=== PATIENT | female | born 1940 | race Caucasian/White ===

== ENCOUNTER 2024-08-21 12:07 | Inpatient (IN) ==
--- NOTE | 2024-08-21 13:09 | Emergency Department Note ---
HPI - Fall General Stated Complaint: fall Time Seen by Provider: 08/21/24 12:53 Source: patient and family Mode of arrival: walk-in Limitations: no limitations History of Present Illness HPI Narrative: This is a 84 year old female patient that presents to the ER with c/o falling 3 days ago in the bathroom and has been c/o left lateral rib pain, LLQ abdominal pain, bruising to left periorbital area since fall. Patient denies any LOC, neck pain, back pain, hip pain, chest pain, SOB, numbness, tingling, weakness, LOC, dizziness or N/V MD complaint: Reports fall Fall from: Reports standing Fall witnessed: Reports no Place fall occurred: Reports home Prolonged down time: Reports no Context: Reports tripped/slipped Location of injury: Reports head and face Associated symptoms (after fall): Reports denies Related Data Home Medications Medication Instructions Recorded Confirmed atorvastatin 20 mg tablet 20 mg PO DAILY 02/22/24 06/02/24 budesonide 160 mcg-glycopyr 9 2 inh inhalation BID 02/22/24 06/02/24 mcg-formot 4.8 mcg/actuation HFA inhaler ([employer]) gabapentin 100 mg capsule 100 mg PO Q12H 02/22/24 06/02/24 isosorbide mononitrate 60 mg 60 mg PO DAILY 02/22/24 06/02/24 tablet,extended release 24 hr metoprolol succinate 50 mg 50 mg PO .qhs 02/22/24 06/02/24 tablet,extended release 24 hr rivaroxaban 20 mg tablet (Xarelto) 20 mg PO DAILY 02/22/24 06/02/24 venlafaxine 150 mg 150 mg PO DAILY 02/22/24 06/02/24 capsule,extended release 24 hr hydroxyzine HCl 10 mg tablet 10 mg PO TID 06/02/24 06/02/24 methenamine hippurate 1 gram tablet 1 g PO BID 06/02/24 06/02/24 Previous Rx's Medication Instructions Recorded furosemide 20 mg tablet 20 mg PO ONCE PRN wt gain, dysnea, 02/25/24 swelling #30 tabs levalbuterol HCl 1.25 mg/3 mL 1.25 mg (3 mL) inhalation Q6H PRN 02/25/24 solution for nebulization shortness of breath or wheezing #240 mL Allergies Allergy/AdvReac Type Severity Reaction Status Date / Time codeine Allergy Mild Verified 06/01/24 17:21 Review of Systems 2 Status of ROS 10 or more systems reviewed and unremark able except as noted in history and below Constitutional Denies: fever, chills, change in weight, fatigue, malaise or night sweats Eyes Denies: change in vision or blurry vision Ears, nose, mouth, and throat Denies: throat pain, neck pain, throat swelling, difficulty swallowing or hoarseness Cardiovascular Reports: other (left lateral rib pain); Denies: chest pain, palpitations, edema, swelling of feet/ankles or lightheadedness Respiratory Denies: shortness of breath, cough, wheezing, stridor or pain on inspiration Gastrointestinal Reports: abdominal pain (LLQ); Denies: nausea, vomiting, coffee grounds in vomit, heartburn, diarrhea or constipation Genitourinary Denies: painful urination, urinary frequency, urinary urgency or urinary incontinence Musculoskeletal Denies: back pain, neck pain, extremity pain or extremity swelling Neurological Denies: headache, numbness in extremities, weakness in extremities or lack of coordination Psychiatric Denies: anxiety, mood swings, panic attacks, change in sleep pattern or hopelessness Endocrine Denies: excessive urination, excessive thirst, fatigue or cold intolerance Hematologic/Lymphatic Denies: easy bruising or easy bleeding Allergic/Immunologic Denies: hives, throat swelling, tongue swelling, facial swelling, wheezing or itchy eyes PFSH PFSH Medical History (Updated 06/09/24 @ 00:00 by ) COPD (chronic obstructive pulmonary disease) HTN (hypertension) A-fib CHF (congestive heart failure) CVA (cerebral vascular accident) Pacemaker Surgical History Hx of cholecystectomy Hx of hysterectomy Hx of appendectomy Hx of prior ablation treatment Social History (Updated 06/01/24 @ 20:24 by Monse Main APRN) Smoking status: current every day smoker Within the past year, how often did you have a drink containing alcohol: never Score interpretation: A score less than 3 is consistent with normal alcohol consumption. Non-prescribed substance use: denies use Problems where you live: no known problems Highest level of school completed/degree received: high school Feel stressed/tense/nervous/anxious/difficulty sleeping: to some extent Life stressors: other (none) Life stressor details: Current medical condition Due to disability, difficulty making decisions: No Exam Constitutional: normal general appearance and no apparent distress HENMT: normocephalic, head/scalp traumatic (old yellow bruising left periorbital area), hearing grossly normal bilaterally, external ears normal, EACs normal, nasal mucous membranes normal, external nose normal, oral mucous membranes normal and oropharynx normal Eyes: PERRL, EOMs intact bilaterally, conjunctivae normal and no scleral icterus Neck/C-Spine: visual inspection normal, trachea midline, cervical spine nontender, cervical full ROM noted, supple, no meningeal signs and thyroid normal Lymph: no lymphadenopathy noted Chest: inspection of chest normal and palpation of chest abnormal left lateral rib tenderness with palpation Respiratory: breath sounds equal bilaterally, normal respiratory effort, clear to auscultation bilaterally, no wheezes, no rales, no use of accessory muscles and chest percussion normal Cardiovascular: normal heart rate noted, regular rhythm noted, no rub, no murmur, no JVD, peripheral pulses 2+ throughout and no additional abnormal heart sounds Gastrointestinal: abdomen normal to inspection, abdomen soft to palpation, tender to palpation (tenderness) (LLQ), nontender to percussion, nondistended, normoactive bowel sounds, no hepatosplenomegaly, no masses, no pulsatile mass, no ascites and no hernia Genitourinary: no CVA tenderness Back/Pelvis: spine normal to inspection, no thoracic spine tenderness, no lumbar spine tenderness, thoracic spine ROM normal, lumbar spine ROM normal, no paraspinal muscle tenderness noted and straight leg raise negative bilaterally Extremities: abnormal to inspection (skin tear Right upper arm), normal to palpation, no tenderness, full ROM, no joint enlargement and no deformity Neurology: 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 MDM - Fall Differential Diagnosis Differential diagnosis: Likely other (rib contusions) Medical Records Attestation: I reviewed the patient's medical records. Lab Data Attestation: I reviewed the patient's lab results. Labs: Lab Results 08/21/24 Range/Units 13:23 WBC 11.8 H (4.3-9.3) K/uL RBC 4.5 (4.00-5.50) M/uL Hgb 14.2 (12.5-15.8) gm/dL Hct 43.6 (35.9-46.7) % MCV 96.7 H (81.0-93.7) fl MCH 31.4 (27.6-32.2) pg MCHC 32.5 L (33.1-35.3) g/dl RDW 17.1 H (11.4-14.2) % Plt Count 218 (152-353) K/uL MPV 8.3 (6.9-10.8) fl Gran % 78.6 H (47.8-71.3) % Lymph % (Auto) 11.2 L (20.0-43.0) % [place] % (Auto) 9.6 (3.6-9.8) % Eos % (Auto) 0.3 L (0.4-2.8) % Baso % (Auto) 0.3 (0.1-0.85) Lymph # (Auto) 1.3 (1.1-3.1) [place] # (Auto) 1.1 (1.1-3.1) Eos # (Auto) 0.0 (0.0-0.2) Baso # (Auto) 0.0 (0.0-0.1) Absolute Gran (auto) 9.3 H (2.3-6.0) Sodium 141 (136-145) mmol/L Potassium 3.6 (3.6-5.2) mmol/L Chloride 104.0 (98-107) mmol/L Carbon Dioxide 28 (21-32) mmol/L Anion Gap 9.0 (4-14) mEq/L BUN 12 (7-18) mg/dL Creatinine 0.6 (0.6-1.3) mg/dL Estimated GFR 89.0 (>59.9) Glucose 106 (70-110) mg/dL Calcium 9.2 (8.5-10.1) mg/dL Total Bilirubin 1.20 H (0.0-1.0) mg/dL AST 23 (15-37) U/L ALT 17 L (30-65) U/L Alkaline Phosphatase 119 (50-136) U/L Total Protein 7.1 (6.4-8.2) g/dL Albumin 3.2 L (3.4-5.0) g/dL Imaging Data Imaging ordered: CT scan - abdomen, CT scan - chest, CT scan - head and CT scan - pelvis Attestation: I have reviewed the pertinent imaging results. Discharge Plan Discharge Patient Disposition: Admitted As Observation Condition: Stable Clinical Impression: Fracture, ribs, Fall, Contusion of face Prescriptions: No Action atorvastatin 20 mg tablet 20 mg PO DAILY venlafaxine 150 mg capsule,extended release 24hr 150 mg PO DAILY isosorbide mononitrate 60 mg tablet extended release 24 hr 60 mg PO DAILY Xarelto 20 mg tablet 20 mg PO DAILY [employer]tri [employer] 160-9-4.8 mcg/actuation HFA aerosol inhaler 2 inh INHALATION BID Patient Comments: INHALE 2 PUFFS TWICE A DAY gabapentin 100 mg capsule 100 mg PO Q12H metoprolol succinate 50 mg tablet extended release 24 hr 50 mg PO .qhs furosemide 20 mg Tablet 20 mg PO ONCE PRN (Reason: wt gain, dysnea, swelling) Qty: 30 0RF levalbuterol HCl 1.25 mg/3 mL Solution For Nebulization 1.25 mg inhalation Q6H PRN (Reason: shortness of breath or wheezing) Qty: 240 0RF methenamine hippurate 1 gram tablet 1 g PO BID Patient Comments: TAKE 1 TABLET BY MOUTH TWICE A DAY hydroxyzine HCl 10 mg tablet 10 mg PO TID Print Language: Khmer Referrals: Hailee Barreto DO [Primary Care Provider] - Time of Disposition: 16:03
[2024-08-21 13:35] LABS: Potassium 3.6 mmol/L (3.6-5.2)
[2024-08-21 13:43] LABS: Basophils%(Percent) Auto 0.3 (0.1-0.85); Eosinophils%(Percent) Auto 0.3 % (0.4-2.8); Granulocytes % - Auto 78.6 % (47.8-71.3); Granulocytes#(Absolute)- Auto 9.3 (2.3-6.0); Hematocrit 43.6 % (35.9-46.7); Mean Corpuscular Volume 96.7 fl (81.0-93.7); Monocytes #(Absolute)- Auto 1.1 (1.1-3.1); Monocytes %(Percent)- Auto 9.6 % (3.6-9.8); Platelet Count 218 K/uL (152-353); White Blood Count 11.8 K/uL (4.3-9.3)
[2024-08-21] MEDS ORDERED: ACETAMINOPHEN 1000 MG/100 ML 1,000 MG/100 ML IV.SOLN IV ONE (14:53)
[2024-08-21] MEDS: ACETAMINOPHEN 1000 MG/100 ML 1,000 MG/100 ML IV.SOLN IV STA (14:54)
[2024-08-21] MEDS ORDERED: bisacodyL 10 MG SUPP.RECT PR PRN (16:45)
[2024-08-21 17:05] LABS: Potassium 4.3 mmol/L (3.6-5.2)
[2024-08-22] MEDS: ACETAMINOPHEN 1000 MG/100 ML 1,000 MG/100 ML IV.SOLN IV PRN (01:19)
[2024-08-22] MEDS: HYDROMORPHONE HCL 2 MG TABLET PO ONE (03:16)
[2024-08-22 05:38] LABS: Basophils #(Absolute) Auto 0.1 (0.0-0.1); Basophils%(Percent) Auto 0.4 (0.1-0.85); Eosinophils%(Percent) Auto 0.3 % (0.4-2.8); Granulocytes % - Auto 77.7 % (47.8-71.3); Hematocrit 40.4 % (35.9-46.7); Mean Corpuscular Volume 97.2 fl (81.0-93.7); Monocytes #(Absolute)- Auto 1.2 (1.1-3.1); Monocytes %(Percent)- Auto 9.1 % (3.6-9.8); Platelet Count 217 K/uL (152-353); White Blood Count 12.9 K/uL (4.3-9.3)
[2024-08-22 05:54] LABS: Potassium 3.4 mmol/L (3.6-5.2)
[2024-08-22] MEDS: POTASSIUM CHLORIDE 20 MEQ TAB.ER.PRT PO ONE (10:03)
[2024-08-22 10:28] LABS: PH BODY FLUID EXCP BLOOD 6.5 (5 - 9); Specific Gravity Urine 1.015 (1.001-1.035); Urine Appearance HAZY (CLEAR); Urine Blood NEGATIVE (NEG - TRACE); Urine Color DARK YELLOW (STRAW/YELL.); Urine Urobilinogen Normal (NORMAL)
[2024-08-22] MEDS: NEOMYCIN/BACITRACIN/POLYMYXINB 1 EACH OINT.PACK TOPICAL PRN (12:09)
--- NOTE | 2024-08-22 14:09 | History & Physical Report ---
H&P: HPI History of Present Illness Chief complaint: MULTIPLE RIB FRACTURES, FACIAL CONTUSION, FALL Narrative: This is a 84 year old female patient that presents to the ER with c/o falling 3 days ago in the bathroom and has been c/o left lateral rib pain, LLQ abdominal pain, bruising to left periorbital area since fall. Patient denies any LOC, neck pain, back pain, hip pain, chest pain, SOB, numbness, tingling, weakness, LOC, dizziness or N/V. Admitted to med/surg for observation and treatment. Patient had a restless night per nursing staff and daughter at bedside. Pain was not able to sufficiently be controlled through the night. On-call provider was contacted and Hydromorphone Hcl 2 mg PO ONCE was given to help ease the patient off. In the a.m patient and daughter were educated on the benefits of hospice nurse care at a assisted facility for rehabilitation purposes and regain pulmonary strength through pulmonary rehab. Patient and family are in agreement with fdc plan at this time for rehabilitation. Review of Systems Status of ROS 10 or more systems reviewed and unremark able except as noted in history and below Constitutional Denies: fever, chills, change in weight, fatigue, malaise or night sweats Eyes Denies: change in vision or blurry vision Ears, nose, mouth, and throat Denies: throat pain, neck pain, throat swelling, difficulty swallowing or hoarseness Cardiovascular Reports: other (left lateral rib pain); Denies: chest pain, palpitations, edema, swelling of feet/ankles, lightheadedness or shortness of breath with exertion Respiratory Denies: shortness of breath, cough, wheezing, stridor or pain on inspiration Gastrointestinal Reports: abdominal pain (LLQ); Denies: nausea, vomiting, coffee grounds in vomit, heartburn, diarrhea, constipation or difficulty swallowing Genitourinary Denies: painful urination, urinary frequency, urinary urgency or urinary incontinence Musculoskeletal Denies: back pain, neck pain, extremity pain or extremity swelling Neurological Denies: headache, numbness in extremities, weakness in extremities or lack of coordination Psychiatric Denies: anxiety, mood swings, panic attacks, change in sleep pattern or hopelessness Endocrine Denies: excessive urination, excessive thirst, fatigue or cold intolerance Hematologic/Lymphatic Denies: easy bruising or easy bleeding Allergic/Immunologic Denies: hives, throat swelling, tongue swelling, facial swelling, wheezing or itchy eyes PFSH PFSH Medical History (Updated 08/25/24 @ 12:15 by Latoya Hwang RN) COPD (chronic obstructive pulmonary disease) HTN (hypertension) A-fib CHF (congestive heart failure) CVA (cerebral vascular accident) Pacemaker Surgical History Hx of cholecystectomy Hx of hysterectomy Hx of appendectomy Hx of prior ablation treatment Social History (Updated 06/01/24 @ 20:24 by Monse Main APRN) Smoking status: current every day smoker Within the past year, how often did you have a drink containing alcohol: never Score interpretation: A score less than 3 is consistent with normal alcohol consumption. Non-prescribed substance use: denies use Problems where you live: no known problems Highest level of school completed/degree received: high school Feel stressed/tense/nervous/anxious/difficulty sleeping: to some extent Life stressors: other Life stressor details: 1 Due to disability, difficulty making decisions: No Meds Home Medications and Allergies Home Medications Medication Instructions Recorded Confirmed Type atorvastatin 20 mg tablet 20 mg PO DAILY 02/22/24 08/22/24 History budesonide 160 mcg-glycopyr 9 2 inh inhalation BID 02/22/24 08/22/24 History mcg-formot 4.8 mcg/actuation HFA inhaler (Breztri Aerosphere) gabapentin 100 mg capsule 100 mg PO Q12H 02/22/24 08/22/24 History isosorbide mononitrate 60 mg 60 mg PO DAILY 02/22/24 08/22/24 History tablet,extended release 24 hr metoprolol succinate 50 mg 50 mg PO .qhs 02/22/24 08/22/24 History tablet,extended release 24 hr rivaroxaban 20 mg tablet (Xarelto) 20 mg PO DAILY 02/22/24 08/22/24 History venlafaxine 150 mg 150 mg PO DAILY 02/22/24 08/22/24 History capsule,extended release 24 hr furosemide 20 mg tablet 20 mg PO ONCE PRN wt gain, dysnea, 02/25/24 08/22/24 Rx swelling #30 tabs levalbuterol HCl 1.25 mg/3 mL 1.25 mg (3 mL) inhalation Q6H PRN 02/25/24 08/22/24 Rx solution for nebulization shortness of breath or wheezing #240 mL hydroxyzine HCl 10 mg tablet 10 mg PO TID 06/02/24 08/22/24 History methenamine hippurate 1 gram tablet 1 g PO BID 06/02/24 08/22/24 History rivaroxaban 15 mg tablet (Xarelto) 15 mg PO DAILY 08/22/24 08/22/24 History vitamins A,C,J-tjle-pkqfoi 2,148 1 tab PO DAILY 08/23/24 08/23/24 History mcg-113 mg-45 mg-17.4 mg tablet (PreserVision AREDS) Allergies Allergy/AdvReac Type Severity Reaction Status Date / Time codeine Allergy Mild Verified 08/21/24 16:48 Exam Exam: Patient in ingram's position with daughter at bedside upon entering room for exam. She is feeling better once pain was gotten under control early this morning. Constitutional: abnormal general appearance (disheveled), (chronically ill) and (frail appearing), distress noted (mild) (pain), abnormal body habitus (cachectic) and (thin), limitations noted (physical limitations) and alert Vital Signs - 24 hr 08/21/24 16:45 08/21/24 16:45 08/21/24 16:58 Temperature 97.6 F 97.3 F L Pulse Rate 60 Pulse Rate [Left B rachial] 62 Respiratory Rate 20 18 Blood Pressure 152/74 Blood Pressure [Ri ght Arm] 158/81 Pulse Oximetry 96 96 Oxygen Delivery Me thod Room Air Room Air 08/21/24 19:47 08/21/24 23:17 08/22/24 03:38 Temperature 98.0 F 98.2 F 97.8 F Pulse Rate Pulse Rate [Left B rachial] 60 55 L 60 Respiratory Rate 17 19 21 Blood Pressure Blood Pressure [Ri ght Arm] 144/73 186/81 180/86 Pulse Oximetry 92 L 95 Oxygen Delivery Pr thod Room Air Room Air Room Air 08/22/24 07:45 08/22/24 11:49 Temperature 97.8 F 97.7 F Pulse Rate Pulse Rate [Left B rachial] 60 61 Respiratory Rate 19 19 Blood Pressure Blood Pressure [Ri ght Arm] 183/80 125/67 Pulse Oximetry 91 L 92 L Oxygen Delivery Me thod Room Air Room Air HENMT: normocephalic, head/scalp traumatic (old yellow bruising left periorbital area), hearing grossly normal bilaterally, external ears normal, EACs normal, nasal mucous membranes normal, external nose normal, oral mucous membranes normal and oropharynx normal Eyes: PERRL, EOMs intact bilaterally, conjunctivae normal, no scleral icterus and periorbital findings abnormal (Lt periorbital bruising) Neck/C-Spine: visual inspection normal, trachea midline, cervical spine non tender, cervical full ROM noted, supple, no meningeal signs and thyroid normal Lymph: no lymphadenopathy noted Chest: inspection of chest normal and palpation of chest abnormal Lt rib fx of #11; rib displacement of #12 Respiratory: breath sounds equal bilaterally, abnormal respiratory effort (shallow breathing) (due to fx rib), clear to auscultation bilaterally, no wheezes, no rales and no use of accessory muscles Cardiovascular: normal heart rate noted, regular rhythm noted, no rub, no murmur, no JVD, peripheral pulses 2+ throughout and no additional abnormal heart sounds Gastrointestinal: abdomen normal to inspection, abdomen soft to palpation, tender to palpation (tenderness) (LLQ), nontender to percussion, nondistended, normoactive bowel sounds, no hepatosplenomegaly, no masses, no pulsatile mass, no ascites and no hernia Genitourinary: no CVA tenderness Back/Pelvis: spine normal to inspection, no thoracic spine tenderness, no lumbar spine tenderness, thoracic spine ROM normal, lumbar spine ROM normal, no paraspinal muscle tenderness noted and straight leg raise negative bilaterally Extremities: abnormal to inspection (skin tear Right upper arm), normal to palpation, no tenderness, full ROM, no joint enlargement and no deformity 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: 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, no movement abnormality noted, no focal motor deficit noted, no sensory deficits noted, speech normal, coordination normal, no pronator drift noted, no fasciculations noted and GCS normal Psychiatry: mental status grossly normal, oriented x3, thought process normal, cooperative, affect normal, psychomotor activity normal and memory normal Skin: skin color normal Assessment and Plan Assessment and Plan (1) Rib fracture: Qualifiers: Encounter type: initial encounter Fracture type: closed Laterality: left Rib fracture type: single rib Qualified Code(s): S22.32XA - Fracture of one rib, left side, initial encounter for closed fracture Code(s): S22.39XA - Fracture of one rib, unspecified side, initial encounter for closed fracture (2) General weakness: Code(s): R53.1 - Weakness (3) COPD (chronic obstructive pulmonary disease): Qualifiers: COPD type: COPD with acute exacerbation Qualified Code(s): J44.1 - Chronic obstructive pulmonary disease with (acute) exacerbation Code(s): J44.9 - Chronic obstructive pulmonary disease, unspecified (4) Debility: Code(s): R53.81 - Other malaise (5) Frequent falls: Code(s): R29.6 - Repeated falls (6) Dementia: Qualifiers: Dementia behavioral or psychological symptom: with anxiety Dementia severity: unspecified severity Dementia type: unspecified type Qualified Code(s): F03.94 - Unspecified dementia, unspecified severity, with anxiety Code(s): F03.90 - Unspecified dementia, unspecified severity, without behavioral disturbance, psychotic disturbance, mood disturbance, and anxiety (7) Tremors of nervous system: Code(s): R25.1 - Tremor, unspecified (8) CVA (cerebral vascular accident): Qualifiers: CVA mechanism: unspecified Qualified Code(s): I63.9 - Cerebral infarction, unspecified Code(s): I63.9 - Cerebral infarction, unspecified (9) Pacemaker: Code(s): Z95.0 - Presence of cardiac pacemaker (10) Leg cramping: Code(s): R25.2 - Cramp and spasm Plan Acetaminophen 1,000 mg in 100 mls @ 400 mls/hr IV Q6H PRN Bisacodyl 10 mg [place] DAILY PRN Neomycin/Polymyxin/Bacitrtacin (1) each TOPICAL DAILY PRN Wound Care on RUE for skin tear from fall prior to hospital stay. Continue pain control. PT screen requested. Results Labs Labs: CBC WBC 12.9 K/uL (4.3-9.3) H 08/22/24 05:20 RBC 4.2 M/uL (4.00-5.50) 08/22/24 05:20 Hgb 13.3 gm/dL (12.5-15.8) 08/22/24 05:20 Hct 40.4 % (35.9-46.7) 08/22/24 05:20 MCV 97.2 fl (81.0-93.7) H 08/22/24 05:20 MCH 32.1 pg (27.6-32.2) 08/22/24 05:20 MCHC 33.1 g/dl (33.1-35.3) 08/22/24 05:20 RDW 16.9 % (11.4-14.2) H 08/22/24 05:20 Plt Count 217 K/uL (152-353) 08/22/24 05:20 MPV 8.4 fl (6.9-10.8) 08/22/24 05:20 Gran % 77.7 % (47.8-71.3) H 08/22/24 05:20 Lymph % (Auto) 12.5 % (20.0-43.0) L 08/22/24 05:20 [place] % (Auto) 9.1 % (3.6-9.8) 08/22/24 05:20 Eos % (Auto) 0.3 % (0.4-2.8) L 08/22/24 05:20 Baso % (Auto) 0.4 (0.1-0.85) 08/22/24 05:20 Lymph # (Auto) 1.6 (1.1-3.1) 08/22/24 05:20 [place] # (Auto) 1.2 (1.1-3.1) 08/22/24 05:20 Eos # (Auto) 0.0 (0.0-0.2) 08/22/24 05:20 Baso # (Auto) 0.1 (0.0-0.1) 08/22/24 05:20 Absolute Gran (auto) 10.0 (2.3-6.0) H 08/22/24 05:20 BMP Sodium 141 mmol/L (136-145) 08/22/24 05:20 Potassium 3.4 mmol/L (3.6-5.2) L 08/22/24 05:20 Chloride 106.0 mmol/L (98-107) 08/22/24 05:20 Carbon Dioxide 25 mmol/L (21-32) 08/22/24 05:20 Anion Gap 10.0 mEq/L (4-14) 08/22/24 05:20 BUN 13 mg/dL (7-18) 08/22/24 05:20 Creatinine 0.7 mg/dL (0.6-1.3) 08/22/24 05:20 Estimated GFR 85.8 (>59.9) 08/22/24 05:20 Glucose 101 mg/dL (70-110) 08/22/24 05:20 Calcium 8.7 mg/dL (8.5-10.1) 08/22/24 05:20 Total Bilirubin 1.07 mg/dL (0.0-1.0) H 08/22/24 05:20 AST 17 U/L (15-37) 08/22/24 05:20 ALT 13 U/L (30-65) L 08/22/24 05:20 Alkaline Phosphatase 107 U/L (50-136) 08/22/24 05:20 Total Protein 6.4 g/dL (6.4-8.2) 08/22/24 05:20 Albumin 2.8 g/dL (3.4-5.0) L 08/22/24 05:20 Liver Function Total Bilirubin 1.07 mg/dL (0.0-1.0) H 08/22/24 05:20 AST 17 U/L (15-37) 08/22/24 05:20 ALT 13 U/L (30-65) L 08/22/24 05:20 Alkaline Phosphatase 107 U/L (50-136) 08/22/24 05:20 Total Protein 6.4 g/dL (6.4-8.2) 08/22/24 05:20 Albumin 2.8 g/dL (3.4-5.0) L 08/22/24 05:20 Urine Urine Color Dark yellow (STRAW/YELL.) 08/22/24 10:20 Urine Appearance Hazy (CLEAR) 08/22/24 10:20 Ur Specific [place] 1.015 (1.001-1.035) 08/22/24 10:20 Urine Protein Negative (NEGATIVE) 08/22/24 10:20 Urine Glucose (UA) Normal (NORMAL) 08/22/24 10:20 Urine Ketones Negative (NEGATIVE) 08/22/24 10:20 Urine Occult Blood Negative (NEG - TRACE) 08/22/24 10:20 Urine Nitrite Negative (NEGATIVE) 08/22/24 10:20 Urine Bilirubin Negative (NEGATIVE) 08/22/24 10:20 Urine Urobilinogen Normal (NORMAL) 08/22/24 10:20 Ur Leukocyte Esterase Negative (NEGATIVE) 08/22/24 10:20 Imaging Imaging ordered: CT scan - chest, CT scan - head and other (Cervical Spin CT; Face CT) Radiologist's impression: CT CERVICAL SPINE WO CON Date of Service: 08/21/24 HISTORY: fall; COMPARISON: None. TECHNIQUE: Multiple axial images of the cervical spine without contrast using standard departmental protocol. Sagittal and coronal reformatted images were performed. Dose reduction techniques including Automated Exposure Control (AEC) and adjustment of mA and kV were utilized. FINDINGS: No cervical spine fracture or subluxation. Mild multilevel degenerative changes in the cervical spine. No prevertebral soft tissue swelling. Mild emphysematous change. Visualized thyroid gland unremarkable. IMPRESSION: No acute cervical spine findings. CT CHEST/ABD/W Date of Service: 08/21/24 HISTORY: FALL; COMPARISON: None. TECHNIQUE: Contiguous axial CT images of the chest, abdomen, and pelvis following intravenous contrast. Images reviewed in the axial imaging plane with reformatted sagittal and coronal images.The above CT scan was done with automated exposure control and the mA and kV was adjusted to obtain quality images according to patient size. FINDINGS: The lungs are expanded. Prominent interstitial markings in the lower lobes of both lungs. Acute traumatic nondisplaced fracture left 10th posterolateral rib and acute traumatic displaced fracture left 11th posterolateral rib. No pneumothorax. Trace left-sided pleural fluid collection. Mild cardiomegaly. Coronary artery calcifications. Slight enlargement of the main pulmonary outflow trunk 3 cm diameter. Normal enhancement of the thoracic aorta without evidence of aneurysm or dissection. Arterial vascular calcifications aorta and branch vessels. No pericardial effusion. No mediastinal or hilar adenopathy. Liver, pancreas, spleen, adrenal glands appear intact. Scattered arterial vascular calcifications aorta and branch vessels. Kidneys normal size and position. No hydronephrosis. 1.6 cm exophytic mass central density -1 Hounsfield units cortex upper pole left kidney. 0.7 cm mass central density minus 1 Hounsfield units posterior midpole left kidney Details of the GI tract are limited since oral contrast was not used. Generally the small and large bowels are normal caliber. Colonic diverticulosis. Small amount of food and air within the stomach. No ascites. Postsurgical changes of the bowel anterior left mid abdomen. Moderate distention of the urinary bladder. Uterus is absent. [id number] thoracolumbar spondylosis. IMPRESSION: Acute fractures left lower ribs. No pneumothorax. Trace left pleural effusion. Cardiomegaly, coronary artery calcifications. Scattered arterial vascular calcifications aorta and branch vessels. Cholecystectomy. Hysterectomy. CT FACIAL BONES WO CON Date of Service: 08/21/24 HISTORY: FALL; COMPARISON: None. TECHNIQUE: Multiple axial images of the maxillofacial region without contrast using standard departmental protocol. Sagittal and coronal reformatted images were performed. Dose reduction techniques including Automated Exposure Control (AEC) and adjustment of mA and kV were utilized. FINDINGS: Cervical spine shows no fracture or dislocation. Paranasal sinuses are clear. 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 No significant facial soft tissue swelling. IMPRESSION: No acute maxillofacial findings. CT head without contrast Date of Service: 08/21/24 HISTORY: Fall, head trauma TECHNIQUE: Axial noncontrast images with coronal and sagittal reformats. Dose reduction procedures were used with mA/kv adjusted for body size. COMPARISON: 02/22/2024 FINDINGS: The ventricles, cortical sulci, and other CSF spaces are enlarged consistent with generalized atrophy likely age-related. There is decreased attenuation in the periventricular white matter suggestive of small-vessel vascular disease. There is an old lacunar infarct in the left basal ganglia. There are no focal areas of abnormal attenuation to suggest recent or remote CVA, hemorrhage, contusion, mass lesion, or extra-axial fluid collection. Visualized sinuses are clear. The calvarium is intact. IMPRESSION: No acute intracranial abnormality identified Generalized atrophy likely age-related Diffuse small-vessel vascular disease Old infarct left basal ganglia
[2024-08-22] MEDS: KETOROLAC 30 MG/ML INJ VIAL IVP PRN (15:08)
[2024-08-22] MEDS: MORPHINE SULFATE 2 MG/ML CARTRIDGE IV PRN (15:30)
[2024-08-23] MEDS ORDERED: levalbuterol HCL 1.25 MG/3 ML VIAL.NEB INH PRN (00:25)
[2024-08-23] MEDS ORDERED: METOPROLOL SUCCINATE 50 MG PO SCH (00:30)
[2024-08-23] MEDS: GABAPENTIN 100 MG CAPSULE PO SCH (01:39)
[2024-08-23] MEDS: METOPROLOL SUCCINATE 25 MG TAB.ER.24H PO SCH (01:40)
[2024-08-23 06:43] LABS: Basophils #(Absolute) Auto 0.1 (0.0-0.1); Basophils%(Percent) Auto 0.4 (0.1-0.85); Eosinophils%(Percent) Auto 0.2 % (0.4-2.8); Granulocytes % - Auto 85.8 % (47.8-71.3); Granulocytes#(Absolute)- Auto 14.5 (2.3-6.0); Hematocrit 43.6 % (35.9-46.7); Mean Corpuscular Volume 97.9 fl (81.0-93.7); Monocytes #(Absolute)- Auto 1.3 (1.1-3.1); Monocytes %(Percent)- Auto 7.5 % (3.6-9.8); Platelet Count 249 K/uL (152-353); White Blood Count 16.9 K/uL (4.3-9.3)
[2024-08-23 06:54] LABS: Potassium 4.1 mmol/L (3.6-5.2)
[2024-08-23] MEDS: ATORVASTATIN CALCIUM 10 MG TABLET PO SCH (10:07)
[2024-08-23] MEDS: 0.9 % SODIUM CHLORIDE 500 ML IV ONE (10:08)
[2024-08-23] MEDS: VENLAFAXINE HCL 150 MG CAP.ER PO SCH (10:08)
[2024-08-23] MEDS: ISOSORBIDE MONONITRATE 30 MG TAB.ER.24H PO SCH (10:08)
[2024-08-23] MEDS: 0.9 % SODIUM CHLORIDE 1000 ML 1,000 ML IV SCH (10:08)
[2024-08-23] MEDS: METHENAMINE HIPPURATE 1 GM PO SCH (10:24)
[2024-08-24 04:25] LABS: Basophils%(Percent) Auto 0.1 (0.1-0.85); Granulocytes % - Auto 85.9 % (47.8-71.3); Granulocytes#(Absolute)- Auto 16.4 (2.3-6.0); Hematocrit 39.1 % (35.9-46.7); Mean Corpuscular Volume 97.8 fl (81.0-93.7); Monocytes #(Absolute)- Auto 1.4 (1.1-3.1); Monocytes %(Percent)- Auto 7.4 % (3.6-9.8); Platelet Count 229 K/uL (152-353); White Blood Count 19.1 K/uL (4.3-9.3)
[2024-08-24 05:17] LABS: Potassium 3.8 mmol/L (3.6-5.2)
--- NOTE | 2024-08-24 08:25 | Progress Note ---
Progress Note: Subjective Subjective Interval history: Patient chief complaint today is shortness of breath. She was observed to be more alert and oriented, asking questions about her plan of care, sitting up a little higher today. Breathing was more labored today than previous day. WC went up to 16.9, nurse is to assist in feeding and offer ensures if less than 50% of meal has been eat. Patient is in the process of approval for in-patient short- term rehab at the [facility]. Exam Exam: Patient in ingram's position upon entering room for exam. Alert and oriented and asking questions about her plan of care. Patient was observed SOB with labored breathing. Constitutional: abnormal general appearance (disheveled), (chronically ill) and (frail appearing), distress noted (moderate) and (respiratory), abnormal body habitus (cachectic) and (thin), limitations noted (physical limitations) and alert Vital Signs - 24 hr 08/22/24 20:00 08/23/24 00:00 08/23/24 04:00 Temperature 97.8 F 98.3 F 98.3 F Pulse Rate [Left B rachial] 60 64 60 Respiratory Rate 16 16 16 Blood Pressure [Ri t Arm] 116/69 191/80 191/86 Pulse Oximetry 89 L 90 L 91 L Oxygen Delivery Me thod Room Air Room Air Nasal Cannula Oxygen Flow Rate 2 08/23/24 08:00 08/23/24 12:00 08/23/24 16:00 Temperature 97.9 F 97.5 F L 98.5 F Pulse Rate [Left B rachial] 60 60 60 Respiratory Rate 18 18 18 Blood Pressure [Ri ght Arm] 174/88 156/66 160/61 Pulse Oximetry 92 L 96 92 L Oxygen Delivery Me thod Nasal Cannula Nasal Cannula Nasal Cannula Oxygen Flow Rate 4 3 3 HENMT: normocephalic, head/scalp traumatic (old yellow bruising left periorbital area), hearing grossly normal bilaterally, external ears normal, EACs normal, nasal mucous membranes normal, external nose normal, oral mucous membranes normal and oropharynx normal Eyes: PERRL, EOMs intact bilaterally, conjunctivae normal, no scleral icterus and periorbital findings abnormal (Lt periorbital bruising - improving) Neck/C-Spine: visual inspection normal, trachea midline, cervical spine nontender, cervical full ROM noted, supple, no meningeal signs and thyroid normal Lymph: no lymphadenopathy noted Chest: inspection of chest normal and palpation of chest abnormal Lt rib fx of #11; rib displacement of #12 Respiratory: breath sounds equal bilaterally, abnormal respiratory effort (shallow breathing) (due to fx rib) and (labored), auscultation abnormal (bronchial breath sounds) (central), wheezing noted (scattered wheezes) (throughout), no rales, use of accessory muscles noted and chest percussion normal Cardiovascular: normal heart rate noted, regular rhythm noted, no rub, no murmur, no JVD, peripheral pulses 2+ throughout and no additional abnormal heart sounds Gastrointestinal: abdomen normal to inspection, abdomen soft to palpation, tender to palpation (tenderness) (LLQ), nontender to percussion, nondistended, normoactive bowel sounds, no hepatosplenomegaly, no masses, no pulsatile mass, no ascites and no hernia Genitourinary: no CVA tenderness Back/Pelvis: spine normal to inspection, no thoracic spine tenderness, no lumbar spine tenderness, thoracic spine ROM normal, lumbar spine ROM normal, no paraspinal muscle tenderness noted and straight leg raise negative bilaterally Extremities: abnormal to inspection (skin tear Right upper arm - improving), normal to palpation, no tenderness, full ROM, no joint enlargement and no deformity 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, no movement abnormality noted, no focal motor deficit noted, no sensory deficits noted, speech normal, coordination normal, no pronator drift noted, no fasciculations noted and GCS normal Psychiatry: mental status grossly normal, oriented x3, thought process normal, cooperative, affect normal, psychomotor activity normal and memory normal Skin: skin color normal Progress Note: Objective Labs Labs: CBC WBC 16.9 K/uL (4.3-9.3) H 08/23/24 06:35 RBC 4.5 M/uL (4.00-5.50) 08/23/24 06:35 Hgb 14.8 gm/dL (12.5-15.8) 08/23/24 06:35 Hct 43.6 % (35.9-46.7) 08/23/24 06:35 MCV 97.9 fl (81.0-93.7) H 08/23/24 06:35 MCH 33.1 pg (27.6-32.2) H 08/23/24 06:35 MCHC 33.9 g/dl (33.1-35.3) 08/23/24 06:35 RDW 16.9 % (11.4-14.2) H 08/23/24 06:35 Plt Count 249 K/uL (152-353) 08/23/24 06:35 MPV 8.3 fl (6.9-10.8) 08/23/24 06:35 Gran % 85.8 % (47.8-71.3) H 08/23/24 06:35 Lymph % (Auto) 6.1 % (20.0-43.0) L 08/23/24 06:35 [place] % (Auto) 7.5 % (3.6-9.8) 08/23/24 06:35 Eos % (Auto) 0.2 % (0.4-2.8) L 08/23/24 06:35 Baso % (Auto) 0.4 (0.1-0.85) 08/23/24 06:35 Lymph # (Auto) 1.0 (1.1-3.1) L 08/23/24 06:35 [place] # (Auto) 1.3 (1.1-3.1) 08/23/24 06:35 Eos # (Auto) 0.0 (0.0-0.2) 08/23/24 06:35 Baso # (Auto) 0.1 (0.0-0.1) 08/23/24 06:35 Absolute Gran (auto) 14.5 (2.3-6.0) H 08/23/24 06:35 BMP Sodium 141 mmol/L (136-145) 08/23/24 06:35 Potassium 4.1 mmol/L (3.6-5.2) 08/23/24 06:35 Chloride 106.0 mmol/L (98-107) 08/23/24 06:35 Carbon Dioxide 26 mmol/L (21-32) 08/23/24 06:35 Anion Gap 9.0 mEq/L (4-14) 08/23/24 06:35 BUN 24 mg/dL (7-18) H 08/23/24 06:35 Creatinine 0.8 mg/dL (0.6-1.3) 08/23/24 06:35 Estimated GFR 73.1 (>59.9) 08/23/24 06:35 Glucose 121 mg/dL (70-110) H 08/23/24 06:35 Calcium 9.1 mg/dL (8.5-10.1) 08/23/24 06:35 Phosphorus 3.1 mg/dL (2.5-4.9) 08/23/24 06:35 Magnesium 1.9 mg/dL (1.8-2.4) 08/23/24 06:35 Total Bilirubin 1.97 mg/dL (0.0-1.0) H 08/23/24 06:35 AST 19 U/L (15-37) 08/23/24 06:35 ALT 17 U/L (30-65) L 08/23/24 06:35 Alkaline Phosphatase 129 U/L (50-136) 08/23/24 06:35 Total Protein 7.3 g/dL (6.4-8.2) 08/23/24 06:35 Albumin 3.0 g/dL (3.4-5.0) L 08/23/24 06:35 Liver Function Total Bilirubin 1.97 mg/dL (0.0-1.0) H 08/23/24 06:35 AST 19 U/L (15-37) 08/23/24 06:35 ALT 17 U/L (30-65) L 08/23/24 06:35 Alkaline Phosphatase 129 U/L (50-136) 08/23/24 06:35 Total Protein 7.3 g/dL (6.4-8.2) 08/23/24 06:35 Albumin 3.0 g/dL (3.4-5.0) L 08/23/24 06:35 Urine Urine Color Dark yellow (STRAW/YELL.) 08/22/24 10:20 Urine Appearance Hazy (CLEAR) 08/22/24 10:20 Ur Specific [place] 1.015 (1.001-1.035) 08/22/24 10:20 Urine Protein Negative (NEGATIVE) 08/22/24 10:20 Urine Glucose (UA) Normal (NORMAL) 08/22/24 10:20 Urine Ketones Negative (NEGATIVE) 08/22/24 10:20 Urine Occult Blood Negative (NEG - TRACE) 08/22/24 10:20 Urine Nitrite Negative (NEGATIVE) 08/22/24 10:20 Urine Bilirubin Negative (NEGATIVE) 08/22/24 10:20 Urine Urobilinogen Normal (NORMAL) 08/22/24 10:20 Ur Leukocyte Esterase Negative (NEGATIVE) 08/22/24 10:20 Progress Note: A&P Assessment and Plan (1) Pneumonia: Qualifiers: Laterality: left Pneumonia type: due to unspecified organism Lung location: lower lobe of lung Qualified Code(s): J18.9 - Pneumonia, unspecified organism (2) Rib fracture: Qualifiers: Encounter type: initial encounter Fracture type: closed Laterality: left Rib fracture type: single rib Qualified Code(s): S22.32XA - Fracture of one rib, left side, initial encounter for closed fracture (3) General weakness: (4) COPD (chronic obstructive pulmonary disease): Qualifiers: COPD type: COPD with acute exacerbation Qualified Code(s): J44.1 - Chronic obstructive pulmonary disease with (acute) exacerbation (5) Debility: (6) Frequent falls: (7) Dementia: Qualifiers: Dementia behavioral or psychological symptom: with anxiety Dementia severity: unspecified severity Dementia type: unspecified type Qualified Code(s): F03.94 - Unspecified dementia, unspecified severity, with anxiety (8) Tremors of nervous system: (9) CVA (cerebral vascular accident): Qualifiers: CVA mechanism: unspecified Qualified Code(s): I63.9 - Cerebral infarction, unspecified (10) Pacemaker: (11) Leg cramping: Plan Furosemide 20 mg IVP Q8H PRN Levalbuterol Hcl 1.25 mg INH Q6H PRN Wound Care on RUE for skin tear from fall prior to hospital stay. Continue pain control. Fall Risk Details Hanson Fall Scale Risk Level: High Fall Risk Current Medications: Current Medications Atorvastatin Calcium (Atorvastatin Calcium 10 Mg Tablet) 20 mg PO DAILY [facility] Last Admin: 08/23/24 10:07 Dose: 20 mg Bisacodyl (Bisacodyl 10 Mg Supp.Rect) 10 mg [place] DAILY PRN PRN Reason: Constipation Furosemide (Furosemide 20 Mg Tablet) 20 mg PO ONCE PRN PRN Reason: wt gain, dysnea, swelling Acetaminophen (Acetaminophen 1000 Mg/100 Ml) 1,000 mg in 100 mls @ 400 mls/hr IV Q6H PRN PRN Reason: Pain Last Admin: 08/22/24 01:19 Dose: 400 mls/hr Sodium Chloride (Sodium Chloride) 1,000 mls @ 125 mls/hr IV CONT [facility] Last Admin: 08/23/24 10:08 Dose: 125 mls/hr Isosorbide Mononitrate (Isosorbide Mononitrate 30 Mg Tab.Er.24h) 60 mg PO DAILY [facility] Last Admin: 08/23/24 10:08 Dose: 60 mg Ketorolac Tromethamine (Ketorolac 30 Mg/Ml Inj Vial) 30 mg IVP Q8H PRN PRN Reason: MILD PAIN SCALE 1-4 Stop: 08/27/24 14:53 Last Admin: 08/23/24 15:06 Dose: 30 mg Levalbuterol HCl (Levalbuterol Hcl 1.25 Mg/3 Ml Vial.Neb) 1.25 mg INH Q6H PRN PRN Reason: shortness of breath or wheezing Metoprolol Succinate (Metoprolol Succinate 25 Mg Tab.Er.24h) 50 mg PO BEDTIME [facility] Last Admin: 08/23/24 01:40 Dose: 50 mg Morphine Sulfate (Morphine Sulfate 2 Mg/Ml Cartridge) 1 mg IV Q2H PRN PRN Reason: Moderate Pain SCALE 5-7 Last Admin: 08/23/24 05:09 Dose: 1 mg Neomycin/Polymyxin/Bacitracin (Neomycin/Bacitracin/Polymyxinb 1 Each Oint.Pack) 1 each TOPICAL DAILY PRN PRN Reason: Skin Irritation Last Admin: 08/23/24 10:51 Dose: 1 each Non-Formulary Medication (Methenamine Hippurate) 1 gm PO BID [facility] Last Admin: 08/23/24 10:24 Dose: Not Given Non-Formulary Medication (Vitamins A,C,N-Eigd-Boirun [Preservision Areds]) 1 tab PO DAILY [facility] Venlafaxine HCl (Venlafaxine Hcl 150 Mg Cap.Er) 150 mg PO DAILY [facility] Last Admin: 08/23/24 10:08 Dose: 150 mg Time Spent With Patient Time: Total time spent is greater than 50% in coordination of care (as documented) at patient's floor/unit and/or counseling patient:
[2024-08-24] MEDS: VITAMINS A C E ZINC COPPER PO SCH (09:51)
[2024-08-24] MEDS: [UNRECOGNIZED DRUG - OTHER] PO SCH (09:51)
--- NOTE | 2024-08-24 10:36 | Progress Note ---
Progress Note: Subjective Subjective Interval history: Patient WC increased from 16.9 to 19.1 in 24 hrs. Chest X-Ray from 08/23/24 reflect "Left lung base pneumonia with small effusion." New antibiotics will be introduced today per pneumonia protocol. Electrolytes to be replaced and Physical therapy has been asked to start chest percussion (avoiding rib fracture). Nurse reports patient is not eating well, ensure is being encouraged as well as ambulating. Patient has been accepted to the [facility] and will discharge to them for in-patient short term rehabilitation tomorrow, pending medically ready. Exam Exam: Patient in ingram's position, alert and positive disposition upon entering room for exam. Constitutional: abnormal general appearance (chronically ill) and (frail appearing), distress noted (mild) and (respiratory), abnormal body habitus (cachectic), limitations noted (physical limitations) and alert Vital Signs - 24 hr 08/23/24 12:00 08/23/24 16:00 08/23/24 19:20 Temperature 97.5 F L 98.5 F 99.0 F Pulse Rate [Left B rachial] 60 60 60 Respiratory Rate 18 18 16 Blood Pressure [Ri t Arm] 156/66 160/61 198/77 Pulse Oximetry 96 92 L 91 L Oxygen Delivery Me thod Nasal Cannula Nasal Cannula Nasal Cannula Oxygen Flow Rate 3 3 08/23/24 21:49 08/23/24 23:18 08/24/24 03:50 Temperature 98.5 F 97.7 F Pulse Rate [Left B rachial] 60 60 Respiratory Rate 18 21 Blood Pressure [Ri ght Arm] 167/65 189/87 Pulse Oximetry 92 L 94 L 90 L Oxygen Delivery Me thod Nasal Cannula Nasal Cannula Nasal Cannula Oxygen Flow Rate 08/24/24 08:00 Temperature 97.6 F Pulse Rate [Left B rachial] 60 Respiratory Rate 18 Blood Pressure [Ri t Arm] 190/88 Pulse Oximetry 96 Oxygen Delivery Me thod Nasal Cannula Oxygen Flow Rate 3 HENMT: normocephalic, head/scalp traumatic (old yellow bruising left periorbital area), hearing grossly normal bilaterally, external ears normal, EACs normal, nasal mucous membranes normal, external nose normal, oral mucous membranes normal and oropharynx normal Eyes: PERRL, EOMs intact bilaterally, conjunctivae normal, no scleral icterus and periorbital findings abnormal (Lt periorbital bruising - improving) Neck/C-Spine: visual inspection normal, trachea midline, cervical spine nontender, cervical full ROM noted, supple, no meningeal signs and thyroid normal Lymph: no lymphadenopathy noted Chest: inspection of chest normal and palpation of chest abnormal Lt rib fx of #11; rib displacement of #12 Respiratory: breath sounds unequal (Left), abnormal respiratory effort (labored), auscultation abnormal (diminished breath sound) (Lt Lung Base), wheezing noted (scattered wheezes) (throughout), no rales, use of accessory muscles noted and chest percussion normal Cardiovascular: normal heart rate noted, regular rhythm noted, no rub, no murmur, no JVD, peripheral pulses 2+ throughout and no additional abnormal heart sounds Gastrointestinal: abdomen normal to inspection, abdomen soft to palpation, tender to palpation (tenderness) (LLQ), nontender to percussion, nondistended, normoactive bowel sounds, no hepatosplenomegaly, no masses, no pulsatile mass, no ascites and no hernia Genitourinary: no CVA tenderness Back/Pelvis: spine normal to inspection, no thoracic spine tenderness, no lumbar spine tenderness, thoracic spine ROM normal, lumbar spine ROM normal, no paraspinal muscle tenderness noted and straight leg raise negative bilaterally Extremities: abnormal to inspection (skin tear Right upper arm - improving), normal to palpation, no tenderness, full ROM, no joint enlargement and no deformity Neurology: independent driver II-XII intact, no movement abnormality noted, no focal motor deficit noted, no sensory deficits noted, speech normal, coordination normal, no pronator drift noted, no fasciculations noted and GCS normal Psychiatry: mental status grossly normal, oriented x3, thought process normal, cooperative, affect normal, psychomotor activity normal and memory normal Skin: skin color normal Progress Note: Objective Labs Labs: CBC WBC 19.1 K/uL (4.3-9.3) H 08/24/24 04:20 RBC 4.0 M/uL (4.00-5.50) 08/24/24 04:20 Hgb 12.8 gm/dL (12.5-15.8) 08/24/24 04:20 Hct 39.1 % (35.9-46.7) 08/24/24 04:20 MCV 97.8 fl (81.0-93.7) H 08/24/24 04:20 MCH 32.1 pg (27.6-32.2) 08/24/24 04:20 MCHC 32.8 g/dl (33.1-35.3) L 08/24/24 04:20 RDW 17.4 % (11.4-14.2) H 08/24/24 04:20 Plt Count 229 K/uL (152-353) 08/24/24 04:20 MPV 8.3 fl (6.9-10.8) 08/24/24 04:20 Gran % 85.9 % (47.8-71.3) H 08/24/24 04:20 Lymph % (Auto) 6.6 % (20.0-43.0) L 08/24/24 04:20 [place] % (Auto) 7.4 % (3.6-9.8) 08/24/24 04:20 Eos % (Auto) 0.0 % (0.4-2.8) L 08/24/24 04:20 Baso % (Auto) 0.1 (0.1-0.85) 08/24/24 04:20 Lymph # (Auto) 1.3 (1.1-3.1) 08/24/24 04:20 [place] # (Auto) 1.4 (1.1-3.1) 08/24/24 04:20 Eos # (Auto) 0.0 (0.0-0.2) 08/24/24 04:20 Baso # (Auto) 0.0 (0.0-0.1) 08/24/24 04:20 Absolute Gran (auto) 16.4 (2.3-6.0) H 08/24/24 04:20 BMP Sodium 139 mmol/L (136-145) 08/24/24 04:20 Potassium 3.8 mmol/L (3.6-5.2) 08/24/24 04:20 Chloride 106.0 mmol/L (98-107) 08/24/24 04:20 Carbon Dioxide 21 mmol/L (21-32) 08/24/24 04:20 Anion Gap 12.0 mEq/L (4-14) 08/24/24 04:20 BUN 29 mg/dL (7-18) H 08/24/24 04:20 Creatinine 0.7 mg/dL (0.6-1.3) 08/24/24 04:20 Estimated GFR 85.8 (>59.9) 08/24/24 04:20 Glucose 126 mg/dL (70-110) H 08/24/24 04:20 Calcium 8.7 mg/dL (8.5-10.1) 08/24/24 04:20 Phosphorus 2.6 mg/dL (2.5-4.9) 08/24/24 04:20 Magnesium 1.7 mg/dL (1.8-2.4) L 08/24/24 04:20 Total Bilirubin 1.45 mg/dL (0.0-1.0) H 08/24/24 04:20 AST 19 U/L (15-37) 08/24/24 04:20 ALT 13 U/L (30-65) L 08/24/24 04:20 Alkaline Phosphatase 103 U/L (50-136) 08/24/24 04:20 Total Protein 6.4 g/dL (6.4-8.2) 08/24/24 04:20 Albumin 2.5 g/dL (3.4-5.0) L 08/24/24 04:20 Liver Function Total Bilirubin 1.45 mg/dL (0.0-1.0) H 08/24/24 04:20 AST 19 U/L (15-37) 08/24/24 04:20 ALT 13 U/L (30-65) L 08/24/24 04:20 Alkaline Phosphatase 103 U/L (50-136) 08/24/24 04:20 Total Protein 6.4 g/dL (6.4-8.2) 08/24/24 04:20 Albumin 2.5 g/dL (3.4-5.0) L 08/24/24 04:20 Urine Urine Color Dark yellow (STRAW/YELL.) 08/22/24 10:20 Urine Appearance Hazy (CLEAR) 08/22/24 10:20 Ur Specific [place] 1.015 (1.001-1.035) 08/22/24 10:20 Urine Protein Negative (NEGATIVE) 08/22/24 10:20 Urine Glucose (UA) Normal (NORMAL) 08/22/24 10:20 Urine Ketones Negative (NEGATIVE) 08/22/24 10:20 Urine Occult Blood Negative (NEG - TRACE) 08/22/24 10:20 Urine Nitrite Negative (NEGATIVE) 08/22/24 10:20 Urine Bilirubin Negative (NEGATIVE) 08/22/24 10:20 Urine Urobilinogen Normal (NORMAL) 08/22/24 10:20 Ur Leukocyte Esterase Negative (NEGATIVE) 08/22/24 10:20 Imaging Chest x-ray: Radiologist's impression: XR CHEST 2V Date of Service: 08/23/24 HISTORY: hypoxia and fractured ribs; BEST IMAGES DUE TO PT CONDITION [facility] COMPARISON: June 01, 2024 FINDINGS: The trachea is midline. The cardiac silhouette is mildly enlarged with left- sided pacemaker in place. Mild emphysema is present. Left lung base infiltrate with pleural effusion is seen. The rest of lungs are clear without focal infiltrate or effusion. The bony thorax is unremarkable. IMPRESSION: Left lung base pneumonia with small effusion. Progress Note: A&P Assessment and Plan (1) Pneumonia: Qualifiers: Pneumonia type: due to unspecified organism Laterality: left Lung location: lower lobe of lung Qualified Code(s): J18.9 - Pneumonia, unspecified organism (2) Rib fracture: Qualifiers: Encounter type: initial encounter Fracture type: closed Laterality: left Rib fracture type: single rib Qualified Code(s): S22.32XA - Fracture of one rib, left side, initial encounter for closed fracture (3) General weakness: (4) COPD (chronic obstructive pulmonary disease): Qualifiers: COPD type: COPD with acute exacerbation Qualified Code(s): J44.1 - Chronic obstructive pulmonary disease with (acute) exacerbation (5) Debility: (6) Frequent falls: (7) Dementia: Qualifiers: Dementia behavioral or psychological symptom: with anxiety Dementia severity: unspecified severity Dementia type: unspecified type Qualified Code(s): F03.94 - Unspecified dementia, unspecified severity, with anxiety (8) Tremors of nervous system: (9) CVA (cerebral vascular accident): Qualifiers: CVA mechanism: unspecified Qualified Code(s): I63.9 - Cerebral infarction, unspecified (10) Pacemaker: (11) Leg cramping: Plan Adding: Piperacillin Sod/Tazobactam Sod 3.375 gm in Sodium Chloride 100 mls @ 200 mls/hr IV Q6H Azithromycin 500 mg in Sodium Chloride 250 mls @250 mls/hr IV Q24H Vancomycin 1.25 gm in 250 mls @ 175 mls/hr IV ONCE Magnesium Oxide 400 mg PO ONCE PT to start chest percussions, avoiding rib fx area. Wound Care on RUE for skin tear from fall prior to hospital stay. Continue pain control. Fall Risk Details Hanson Fall Scale Risk Level: High Fall Risk Current Medications: Current Medications Atorvastatin Calcium (Atorvastatin Calcium 10 Mg Tablet) 20 mg PO DAILY [facility] Last Admin: 08/24/24 09:50 Dose: 20 mg Bisacodyl (Bisacodyl 10 Mg Supp.Rect) 10 mg [place] DAILY PRN PRN Reason: Constipation Furosemide (Furosemide 20 Mg Tablet) 20 mg PO ONCE PRN PRN Reason: wt gain, dysnea, swelling Acetaminophen (Acetaminophen 1000 Mg/100 Ml) 1,000 mg in 100 mls @ 400 mls/hr IV Q6H PRN PRN Reason: Pain Last Admin: 08/22/24 01:19 Dose: 400 mls/hr Sodium Chloride (Sodium Chloride) 1,000 mls @ 125 mls/hr IV CONT [facility] Last Admin: 08/24/24 03:23 Dose: 125 mls/hr Piperacillin Sod/Tazobactam (Sod 3.375 gm/ Sodium Chloride) 100 mls @ 200 mls/hr IV Q6H [facility] Azithromycin 500 mg/ Sodium (Chloride) 250 mls @ 250 mls/hr IV DAILY [facility] Vancomycin HCl 1 mg/ Sodium (Chloride) 250 mls @ 250 mls/hr IV Q8H [facility] Isosorbide Mononitrate (Isosorbide Mononitrate 30 Mg Tab.Er.24h) 60 mg PO DAILY [facility] Last Admin: 08/24/24 09:50 Dose: 60 mg Ketorolac Tromethamine (Ketorolac 30 Mg/Ml Inj Vial) 30 mg IVP Q8H PRN PRN Reason: MILD PAIN SCALE 1-4 Stop: 08/27/24 14:53 Last Admin: 08/24/24 03:24 Dose: 30 mg Levalbuterol HCl (Levalbuterol Hcl 1.25 Mg/3 Ml Vial.Neb) 1.25 mg INH Q6H PRN PRN Reason: shortness of breath or wheezing Magnesium (Magnesium Oxide 400 Mg Tablet) 400 mg PO ONCE ONE Stop: 08/24/24 09:46 Metoprolol Succinate (Metoprolol Succinate 25 Mg Tab.Er.24h) 50 mg PO BEDTIME [facility] Last Admin: 08/23/24 20:16 Dose: 50 mg Morphine Sulfate (Morphine Sulfate 2 Mg/Ml Cartridge) 1 mg IV Q2H PRN PRN Reason: Moderate Pain SCALE 5-7 Last Admin: 08/23/24 19:25 Dose: 1 mg Neomycin/Polymyxin/Bacitracin (Neomycin/Bacitracin/Polymyxinb 1 Each Oint.Pack) 1 each TOPICAL DAILY PRN PRN Reason: Skin Irritation Last Admin: 08/23/24 10:51 Dose: 1 each Non-Formulary Medication (Methenamine Hippurate) 1 gm PO BID [facility] Last Admin: 08/24/24 09:50 Dose: Not Given Non-Formulary Medication (Vitamins A,C,Z-Sseb-Fhfnff [Preservision Areds]) 1 tab PO DAILY [facility] Last Admin: 08/24/24 09:51 Dose: Not Given Venlafaxine HCl (Venlafaxine Hcl 150 Mg Cap.Er) 150 mg PO DAILY [facility] Last Admin: 08/24/24 09:50 Dose: 150 mg Time Spent With Patient Time: Total time spent is greater than 50% in coordination of care (as documented) at patient's floor/unit and/or counseling patient:
[2024-08-24] MEDS: MAGNESIUM OXIDE 400 MG TABLET PO ONE (10:43)
[2024-08-24] MEDS: PIPERACILLIN/TAZOBACTAM 3.375 3.375 GM in 0.9 % SODIUM CHLORIDE MB+ 100 ML IV SCH (10:43)
[2024-08-24] MEDS: AZITHROMYCIN 500 MG 500 MG in 0.9 % SODIUM CHLORIDE 250 ML IV SCH (13:18)
[2024-08-24] MEDS: VANCOMYCIN/WATER 1.25 GM 1.25 GM/250 ML PIGGYBACK IV ONE (15:34)
[2024-08-25 05:15] LABS: Basophils #(Absolute) Auto 0.1 (0.0-0.1); Basophils%(Percent) Auto 0.3 (0.1-0.85); Eosinophils%(Percent) Auto 0.2 % (0.4-2.8); Granulocytes % - Auto 86.3 % (47.8-71.3); Granulocytes#(Absolute)- Auto 13.8 (2.3-6.0); Hematocrit 37.4 % (35.9-46.7); Mean Corpuscular Volume 97.9 fl (81.0-93.7); Monocytes #(Absolute)- Auto 1.1 (1.1-3.1); Monocytes %(Percent)- Auto 6.9 % (3.6-9.8); Platelet Count 230 K/uL (152-353)
[2024-08-25 05:32] LABS: Potassium 3.6 mmol/L (3.6-5.2)
[2024-08-25] MEDS: RIVAROXABAN 10 MG TABLET PO SCH (09:34)
--- NOTE | 2024-08-25 12:19 | Progress Note ---
Progress Note: Subjective Subjective Interval history: Patient resting in bed upon entering room. She is hard hearing. Instructed patient to use her IS with demonstration requested. She was not using it correctly and I asked respiratory therapy to work with her on this. Patient splints right side when breathing in. She complains of pain scale of 7. WBC down to 16 today from 19 yesterday. Exam Constitutional: abnormal general appearance (frail appearing), abnormal body habitus (thin) and alert Vital Signs - 24 hr 08/24/24 16:00 08/24/24 19:44 08/24/24 23:57 Temperature 98.2 F 97.9 F 97.4 F L Pulse Rate [Left B rachial] 60 60 61 Respiratory Rate 18 18 16 Blood Pressure [Ri t Arm] 158/64 166/65 186/82 Pulse Oximetry 98 96 98 Oxygen Delivery Me thod Nasal Cannula Room Air Nasal Cannula Oxygen Flow Rate 2 08/25/24 04:00 08/25/24 07:52 08/25/24 11:00 Temperature 97.6 F 97.8 F Pulse Rate [Left B rachial] 59 L 60 Respiratory Rate 20 19 Blood Pressure [Ri t Arm] 168/92 156/78 170/70 Pulse Oximetry 97 98 Oxygen Delivery Me thod Nasal Cannula Nasal Cannula Oxygen Flow Rate 2 HENMT: normocephalic, head/scalp atraumatic, hearing grossly abnormal and external ears normal Eyes: PERRL, EOMs intact bilaterally, conjunctivae normal, no scleral icterus and no papilledema Respiratory: breath sounds equal bilaterally and abnormal respiratory effort (splinting with breathing due to rib fractures) congestion Cardiovascular: normal heart rate noted, regular rhythm noted, no gallop and no rub Gastrointestinal: abdomen normal to inspection, abdomen soft to palpation, nontender to palpation, nontender to percussion and nondistended Genitourinary: no CVA tenderness Extremities: normal to inspection, normal to palpation, no tenderness and full ROM Psychiatry: mental status grossly normal, thought process normal and cooperative Skin: skin color abnormal Reports (pale), no rash, no lesions, ecchymosis noted (Bruising around left eye and cheek) and wound(s) noted (skin tear) Progress Note: Objective Labs Labs: CBC WBC 16.0 K/uL (4.3-9.3) H 08/25/24 04:40 RBC 3.8 M/uL (4.00-5.50) L 08/25/24 04:40 Hgb 12.3 gm/dL (12.5-15.8) L 08/25/24 04:40 Hct 37.4 % (35.9-46.7) 08/25/24 04:40 MCV 97.9 fl (81.0-93.7) H 08/25/24 04:40 MCH 32.2 pg (27.6-32.2) 08/25/24 04:40 MCHC 32.9 g/dl (33.1-35.3) L 08/25/24 04:40 RDW 17.4 % (11.4-14.2) H 08/25/24 04:40 Plt Count 230 K/uL (152-353) 08/25/24 04:40 MPV 8.4 fl (6.9-10.8) 08/25/24 04:40 Gran % 86.3 % (47.8-71.3) H 08/25/24 04:40 Lymph % (Auto) 6.3 % (20.0-43.0) L 08/25/24 04:40 [place] % (Auto) 6.9 % (3.6-9.8) 08/25/24 04:40 Eos % (Auto) 0.2 % (0.4-2.8) L 08/25/24 04:40 Baso % (Auto) 0.3 (0.1-0.85) 08/25/24 04:40 Lymph # (Auto) 1.0 (1.1-3.1) L 08/25/24 04:40 [place] # (Auto) 1.1 (1.1-3.1) 08/25/24 04:40 Eos # (Auto) 0.0 (0.0-0.2) 08/25/24 04:40 Baso # (Auto) 0.1 (0.0-0.1) 08/25/24 04:40 Absolute Gran (auto) 13.8 (2.3-6.0) H 08/25/24 04:40 BMP Sodium 139 mmol/L (136-145) 08/25/24 04:40 Potassium 3.6 mmol/L (3.6-5.2) 08/25/24 04:40 Chloride 107.0 mmol/L (98-107) 08/25/24 04:40 Carbon Dioxide 21 mmol/L (21-32) 08/25/24 04:40 Anion Gap 11.0 mEq/L (4-14) 08/25/24 04:40 BUN 25 mg/dL (7-18) H 08/25/24 04:40 Creatinine 0.7 mg/dL (0.6-1.3) 08/25/24 04:40 Estimated GFR 85.8 (>59.9) 08/25/24 04:40 Glucose 110 mg/dL (70-110) 08/25/24 04:40 Calcium 8.5 mg/dL (8.5-10.1) 08/25/24 04:40 Phosphorus 2.5 mg/dL (2.5-4.9) 08/25/24 04:40 Magnesium 1.7 mg/dL (1.8-2.4) L 08/25/24 04:40 Total Bilirubin 1.03 mg/dL (0.0-1.0) H 08/25/24 04:40 AST 18 U/L (15-37) 08/25/24 04:40 ALT 13 U/L (30-65) L 08/25/24 04:40 Alkaline Phosphatase 97 U/L (50-136) 08/25/24 04:40 Total Protein 6.3 g/dL (6.4-8.2) L 08/25/24 04:40 Albumin 2.5 g/dL (3.4-5.0) L 08/25/24 04:40 Liver Function Total Bilirubin 1.03 mg/dL (0.0-1.0) H 08/25/24 04:40 AST 18 U/L (15-37) 08/25/24 04:40 ALT 13 U/L (30-65) L 08/25/24 04:40 Alkaline Phosphatase 97 U/L (50-136) 08/25/24 04:40 Total Protein 6.3 g/dL (6.4-8.2) L 08/25/24 04:40 Albumin 2.5 g/dL (3.4-5.0) L 08/25/24 04:40 Urine Urine Color Dark yellow (STRAW/YELL.) 08/22/24 10:20 Urine Appearance Hazy (CLEAR) 08/22/24 10:20 Ur Specific [place] 1.015 (1.001-1.035) 08/22/24 10:20 Urine Protein Negative (NEGATIVE) 08/22/24 10:20 Urine Glucose (UA) Normal (NORMAL) 08/22/24 10:20 Urine Ketones Negative (NEGATIVE) 08/22/24 10:20 Urine Occult Blood Negative (NEG - TRACE) 08/22/24 10:20 Urine Nitrite Negative (NEGATIVE) 08/22/24 10:20 Urine Bilirubin Negative (NEGATIVE) 08/22/24 10:20 Urine Urobilinogen Normal (NORMAL) 08/22/24 10:20 Ur Leukocyte Esterase Negative (NEGATIVE) 08/22/24 10:20 Progress Note: A&P Assessment and Plan (1) Pneumonia: Qualifiers: Laterality: left (2) General weakness: (3) Debility: (4) Rib fracture: Qualifiers: Encounter type: initial encounter Rib fracture type: single rib Fracture type: closed Laterality: left Qualified Code(s): S22.32XA - Fracture of one rib, left side, initial encounter for closed fracture (5) Frequent falls: (6) Tremors of nervous system: (7) COPD (chronic obstructive pulmonary disease): Qualifiers: COPD type: COPD with acute exacerbation Qualified Code(s): J44.1 - Chronic obstructive pulmonary disease with (acute) exacerbation (8) CVA (cerebral vascular accident): Qualifiers: CVA mechanism: unspecified Qualified Code(s): I63.9 - Cerebral infarction, unspecified (9) Pacemaker: (10) Leg cramping: (11) Dementia: Qualifiers: Dementia type: unspecified type Dementia severity: unspecified severity Dementia behavioral or psychological symptom: with anxiety Qualified Code(s): F03.94 - Unspecified dementia, unspecified severity, with anxiety Plan Added yesterday: Piperacillin Sod/Tazobactam Sod 3.375 gm in Sodium Chloride 100 mls @ 200 mls/hr IV Q6H Azithromycin 500 mg in Sodium Chloride 250 mls @250 mls/hr IV Q24H Vancomycin 1.25 gm in 250 mls @ 175 mls/hr IV ONCE Magnesium Oxide 400 mg PO ONCE PT to start chest percussions, avoiding rib fx area. Wound Care on RUE for skin tear from fall prior to hospital stay. Continue pain control. Respiratory to teach patient how to use IS properly Fall Risk Details Hanson Fall Scale Risk Level: Moderate Fall Risk Current Medications: Current Medications Atorvastatin Calcium (Atorvastatin Calcium 10 Mg Tablet) 20 mg PO DAILY [facility] Last Admin: 08/25/24 09:34 Dose: 20 mg Bisacodyl (Bisacodyl 10 Mg Supp.Rect) 10 mg [place] DAILY PRN PRN Reason: Constipation Furosemide (Furosemide 20 Mg Tablet) 20 mg PO ONCE PRN PRN Reason: wt gain, dysnea, swelling Acetaminophen (Acetaminophen 1000 Mg/100 Ml) 1,000 mg in 100 mls @ 400 mls/hr IV Q6H PRN PRN Reason: Pain Last Admin: 08/22/24 01:19 Dose: 400 mls/hr Sodium Chloride (Sodium Chloride) 1,000 mls @ 125 mls/hr IV CONT [facility] Last Admin: 08/25/24 10:52 Dose: 125 mls/hr Piperacillin Sod/Tazobactam (Sod 3.375 gm/ Sodium Chloride) 100 mls @ 200 mls/hr IV Q6H [facility] Last Infusion: 08/25/24 11:22 Dose: Infused Azithromycin 500 mg/ Sodium (Chloride) 250 mls @ 250 mls/hr IV Q24H [facility] Stop: 08/26/24 13:59 Last Infusion: 08/24/24 14:16 Dose: Infused Vancomycin/PEG/NADA/Lysine/Water (Vancomycin/Water 750 Mg) 750 mg in 150 mls @ 150 mls/hr IV Q24H [facility] Stop: 08/30/24 15:59 Isosorbide Mononitrate (Isosorbide Mononitrate 30 Mg Tab.Er.24h) 60 mg PO DAILY [facility] Last Admin: 08/25/24 09:34 Dose: 60 mg Ketorolac Tromethamine (Ketorolac 30 Mg/Ml Inj Vial) 30 mg IVP Q8H PRN PRN Reason: MILD PAIN SCALE 1-4 Stop: 08/27/24 14:53 Last Admin: 08/25/24 03:36 Dose: 30 mg Levalbuterol HCl (Levalbuterol Hcl 1.25 Mg/3 Ml Vial.Neb) 1.25 mg INH Q6H PRN PRN Reason: shortness of breath or wheezing Metoprolol Succinate (Metoprolol Succinate 25 Mg Tab.Er.24h) 50 mg PO BEDTIME [facility] Last Admin: 08/24/24 20:26 Dose: 50 mg Morphine Sulfate (Morphine Sulfate 2 Mg/Ml Cartridge) 1 mg IV Q2H PRN PRN Reason: Moderate Pain SCALE 5-7 Last Admin: 08/25/24 03:57 Dose: 1 mg Neomycin/Polymyxin/Bacitracin (Neomycin/Bacitracin/Polymyxinb 1 Each Oint.Pack) 1 each TOPICAL DAILY PRN PRN Reason: Skin Irritation Last Admin: 08/23/24 10:51 Dose: 1 each Non-Formulary Medication (Methenamine Hippurate) 1 gm PO BID [facility] Last Admin: 08/25/24 09:34 Dose: Not Given Non-Formulary Medication (Vitamins A,C,W-[id number] [Preservision Areds]) 1 tab PO DAILY [facility] Last Admin: 08/25/24 09:35 Dose: Not Given Rivaroxaban (Rivaroxaban 10 Mg Tablet) 15 mg PO DAILY [facility] Last Admin: 08/25/24 09:34 Dose: 15 mg Venlafaxine HCl (Venlafaxine Hcl 150 Mg Cap.Er) 150 mg PO DAILY [facility] Last Admin: 08/25/24 09:34 Dose: 150 mg Time Spent With Patient Time: Total time spent is greater than 50% in coordination of care (as documented) at patient's floor/unit and/or counseling patient:
[2024-08-25] MEDS: VANCOMYCIN/WATER 750 MG 750 MG/150 ML PIGGYBACK IV SCH (15:38)
[2024-08-26 05:29] LABS: Basophils%(Percent) Auto 0.3 (0.1-0.85); Eosinophils#(Absolute)Auto 0.1 (0.0-0.2)
[2024-08-26 05:36] LABS: Eosinophils%(Percent) Auto 0.8 % (0.4-2.8); Granulocytes % - Auto 78.6 % (47.8-71.3); Granulocytes#(Absolute)- Auto 9.1 (2.3-6.0); Hematocrit 34.9 % (35.9-46.7); Mean Corpuscular Volume 98.9 fl (81.0-93.7); Monocytes %(Percent)- Auto 8.6 % (3.6-9.8); Platelet Count 238 K/uL (152-353); White Blood Count 11.6 K/uL (4.3-9.3)
[2024-08-26 05:41] LABS: Potassium 3.4 mmol/L (3.6-5.2)
--- NOTE | 2024-08-26 12:05 | Progress Note ---
Progress Note: Subjective Subjective Interval history: Patient sitting up in her bed. No overnight event reported by nurse. Patient has a tissue with blood on her bedside table. Upon examination, she has some bleeding from left nostril. Added Bactroban BID to POC. Patient reports she is not eating well. After options were given she did eat 1/2 of a bowl of cereal. She was encourage to drink juices and has been drinking Ensure. Also encouraged her to use her IS and watched her splint with a pillow with coughing. Exam Constitutional: abnormal general appearance (frail appearing), abnormal body habitus (thin) and alert Vital Signs - 24 hr 08/25/24 15:00 08/25/24 19:00 08/25/24 20:59 Temperature 97.7 F 97.9 F Pulse Rate [Left B rachial] 61 60 Respiratory Rate 19 21 Blood Pressure [Ri ght Arm] 162/75 198/77 Pulse Oximetry 97 98 99 Oxygen Delivery Me thod Nasal Cannula Nasal Cannula Oxygen Flow Rate 2 3 Fraction of Inspir ed Oxygen 32 08/25/24 23:00 08/26/24 03:00 08/26/24 07:00 Temperature 98.3 F 98.1 F 97.6 F Pulse Rate [Left B rachial] 60 60 60 Respiratory Rate 21 18 19 Blood Pressure [Ri ght Arm] 192/83 195/88 170/90 Pulse Oximetry 95 98 97 Oxygen Delivery Me thod Nasal Cannula Oxygen Flow Rate 2 Fraction of Inspir ed Oxygen HENMT: normocephalic, head/scalp atraumatic, hearing grossly abnormal, external ears normal, EACs normal, TMs normal bilaterally, nasal mucous membranes abnormal (epistaxis) and oral mucous membranes abnormal (dry) Eyes: PERRL, EOMs intact bilaterally, conjunctivae normal, no scleral icterus and no papilledema Chest: inspection of chest normal Respiratory: breath sounds equal bilaterally, abnormal respiratory effort (shallow breathing), auscultation abnormal and wheezing noted Cardiovascular: normal heart rate noted, regular rhythm noted, no gallop, no rub and no murmur Gastrointestinal: abdomen normal to inspection, abdomen soft to palpation, nontender to palpation, nontender to percussion, nondistended and normoactive bowel sounds Extremities: normal to inspection, normal to palpation and no tenderness Neurology: no focal motor deficit noted, speech normal and coordination normal Psychiatry: mental status grossly normal and cooperative Skin: skin color normal, rash noted, ecchymosis noted and wound(s) noted Progress Note: Objective Labs Labs: CBC WBC 11.6 K/uL (4.3-9.3) H 08/26/24 04:49 RBC 3.5 M/uL (4.00-5.50) L 08/26/24 04:49 Hgb 11.3 gm/dL (12.5-15.8) L 08/26/24 04:49 Hct 34.9 % (35.9-46.7) L 08/26/24 04:49 MCV 98.9 fl (81.0-93.7) H 08/26/24 04:49 MCH 31.9 pg (27.6-32.2) 08/26/24 04:49 MCHC 32.2 g/dl (33.1-35.3) L 08/26/24 04:49 RDW 16.8 % (11.4-14.2) H 08/26/24 04:49 Plt Count 238 K/uL (152-353) 08/26/24 04:49 MPV 8.5 fl (6.9-10.8) 08/26/24 04:49 Gran % 78.6 % (47.8-71.3) H 08/26/24 04:49 Lymph % (Auto) 11.7 % (20.0-43.0) L 08/26/24 04:49 [place] % (Auto) 8.6 % (3.6-9.8) 08/26/24 04:49 Eos % (Auto) 0.8 % (0.4-2.8) 08/26/24 04:49 Baso % (Auto) 0.3 (0.1-0.85) 08/26/24 04:49 Lymph # (Auto) 1.3 (1.1-3.1) 08/26/24 04:49 [place] # (Auto) 1.0 (1.1-3.1) L 08/26/24 04:49 Eos # (Auto) 0.1 (0.0-0.2) 08/26/24 04:49 Baso # (Auto) 0.0 (0.0-0.1) 08/26/24 04:49 Absolute Gran (auto) 9.1 (2.3-6.0) H 08/26/24 04:49 BMP Sodium 138 mmol/L (136-145) 08/26/24 04:49 Potassium 3.4 mmol/L (3.6-5.2) L 08/26/24 04:49 Chloride 108.0 mmol/L (98-107) H 08/26/24 04:49 Carbon Dioxide 20 mmol/L (21-32) L 08/26/24 04:49 Anion Gap 10.0 mEq/L (4-14) 08/26/24 04:49 BUN 20 mg/dL (7-18) H 08/26/24 04:49 Creatinine 0.6 mg/dL (0.6-1.3) 08/26/24 04:49 Estimated GFR 89.0 (>59.9) 08/26/24 04:49 Glucose 105 mg/dL (70-110) 08/26/24 04:49 Calcium 8.5 mg/dL (8.5-10.1) 08/26/24 04:49 Phosphorus 2.5 mg/dL (2.5-4.9) 08/25/24 04:40 Magnesium 1.7 mg/dL (1.8-2.4) L 08/25/24 04:40 Total Bilirubin 0.89 mg/dL (0.0-1.0) 08/26/24 04:49 AST 24 U/L (15-37) 08/26/24 04:49 ALT 16 U/L (30-65) L 08/26/24 04:49 Alkaline Phosphatase 90 U/L (50-136) 08/26/24 04:49 Total Protein 6.1 g/dL (6.4-8.2) L 08/26/24 04:49 Albumin 2.3 g/dL (3.4-5.0) L 08/26/24 04:49 Liver Function Total Bilirubin 0.89 mg/dL (0.0-1.0) 08/26/24 04:49 AST 24 U/L (15-37) 08/26/24 04:49 ALT 16 U/L (30-65) L 08/26/24 04:49 Alkaline Phosphatase 90 U/L (50-136) 08/26/24 04:49 Total Protein 6.1 g/dL (6.4-8.2) L 08/26/24 04:49 Albumin 2.3 g/dL (3.4-5.0) L 08/26/24 04:49 Urine Urine Color Dark yellow (STRAW/YELL.) 08/22/24 10:20 Urine Appearance Hazy (CLEAR) 08/22/24 10:20 Ur Specific [place] 1.015 (1.001-1.035) 08/22/24 10:20 Urine Protein Negative (NEGATIVE) 08/22/24 10:20 Urine Glucose (UA) Normal (NORMAL) 08/22/24 10:20 Urine Ketones Negative (NEGATIVE) 08/22/24 10:20 Urine Occult Blood Negative (NEG - TRACE) 08/22/24 10:20 Urine Nitrite Negative (NEGATIVE) 08/22/24 10:20 Urine Bilirubin Negative (NEGATIVE) 08/22/24 10:20 Urine Urobilinogen Normal (NORMAL) 08/22/24 10:20 Ur Leukocyte Esterase Negative (NEGATIVE) 08/22/24 10:20 Progress Note: A&P Assessment and Plan (1) Pneumonia: Qualifiers: Laterality: left (2) Dementia: Qualifiers: Dementia behavioral or psychological symptom: with anxiety Dementia severity: unspecified severity Dementia type: unspecified type Qualified Code(s): F03.94 - Unspecified dementia, unspecified severity, with anxiety (3) General weakness: (4) Debility: (5) Rib fracture: Qualifiers: Encounter type: initial encounter Fracture type: closed Laterality: left Rib fracture type: single rib Qualified Code(s): S22.32XA - Fracture of one rib, left side, initial encounter for closed fracture (6) Frequent falls: (7) Tremors of nervous system: (8) COPD (chronic obstructive pulmonary disease): Qualifiers: COPD type: COPD with acute exacerbation Qualified Code(s): J44.1 - Chronic obstructive pulmonary disease with (acute) exacerbation (9) CVA (cerebral vascular accident): Qualifiers: CVA mechanism: unspecified Qualified Code(s): I63.9 - Cerebral infarction, unspecified (10) Pacemaker: (11) Leg cramping: Plan Pain control Decrease IV fluids to 85cc/hr Bactroban BID to left nostril chest x-ray in AM CBC, CMP in AM up and out of bed encourage intake BNP in am Fall Risk Details Hanson Fall Scale Risk Level: Moderate Fall Risk Current Medications: Current Medications Atorvastatin Calcium (Atorvastatin Calcium 10 Mg Tablet) 20 mg PO DAILY [facility] Last Admin: 08/26/24 08:42 Dose: 20 mg Bisacodyl (Bisacodyl 10 Mg Supp.Rect) 10 mg [place] DAILY PRN PRN Reason: Constipation Furosemide (Furosemide 20 Mg Tablet) 20 mg PO ONCE PRN PRN Reason: wt gain, dysnea, swelling Acetaminophen (Acetaminophen 1000 Mg/100 Ml) 1,000 mg in 100 mls @ 400 mls/hr IV Q6H PRN PRN Reason: Pain Last Admin: 08/22/24 01:19 Dose: 400 mls/hr Sodium Chloride (Sodium Chloride) 1,000 mls @ 85 mls/hr IV CONT [facility] Last Admin: 08/26/24 08:52 Dose: 125 mls/hr Piperacillin Sod/Tazobactam (Sod 3.375 gm/ Sodium Chloride) 100 mls @ 200 mls/hr IV Q6H [facility] Last Admin: 08/26/24 10:51 Dose: 200 mls/hr Azithromycin 500 mg/ Sodium (Chloride) 250 mls @ 250 mls/hr IV Q24H [facility] Stop: 08/26/24 13:59 Last Infusion: 08/25/24 14:11 Dose: Infused Vancomycin/PEG/[place]/Lysine/Water (Vancomycin/Water 750 Mg) 750 mg in 150 mls @ 150 mls/hr IV Q24H [facility] Stop: 08/30/24 15:59 Last Infusion: 08/25/24 16:38 Dose: Infused Isosorbide Mononitrate (Isosorbide Mononitrate 30 Mg Tab.Er.24h) 60 mg PO DAILY [facility] Last Admin: 08/26/24 08:41 Dose: 60 mg Ketorolac Tromethamine (Ketorolac 30 Mg/Ml Inj Vial) 30 mg IVP Q8H PRN PRN Reason: MILD PAIN SCALE 1-4 Stop: 08/27/24 14:53 Last Admin: 08/26/24 11:00 Dose: 30 mg Levalbuterol HCl (Levalbuterol Hcl 1.25 Mg/3 Ml Vial.Neb) 1.25 mg INH Q6H PRN PRN Reason: shortness of breath or wheezing Metoprolol Succinate (Metoprolol Succinate 25 Mg Tab.Er.24h) 50 mg PO BEDTIME [facility] Last Admin: 08/25/24 21:37 Dose: 50 mg Morphine Sulfate (Morphine Sulfate 2 Mg/Ml Cartridge) 1 mg IV Q2H PRN PRN Reason: Moderate Pain SCALE 5-7 Last Admin: 08/25/24 23:55 Dose: 1 mg Mupirocin (Mupirocin 22 Gm Oint...G.) 1 gm TOPICAL BID ON [facility] Neomycin/Polymyxin/Bacitracin (Neomycin/Bacitracin/Polymyxinb 1 Each Oint.Pack) 1 each TOPICAL DAILY PRN PRN Reason: Skin Irritation Last Admin: 08/25/24 09:30 Dose: 1 each Non-Formulary Medication (Methenamine Hippurate) 1 gm PO BID [facility] Last Admin: 08/26/24 08:43 Dose: 1 gm Non-Formulary Medication (Vitamins A,C,T-[id number] [Preservision Areds]) 1 tab PO DAILY [facility] Last Admin: 08/26/24 08:43 Dose: 1 tab Rivaroxaban (Rivaroxaban 10 Mg Tablet) 15 mg PO DAILY [facility] Last Admin: 08/26/24 08:42 Dose: 15 mg Venlafaxine HCl (Venlafaxine Hcl 150 Mg Cap.Er) 150 mg PO DAILY [facility] Last Admin: 08/26/24 08:41 Dose: 150 mg Time Spent With Patient Time: Total time spent is greater than 50% in coordination of care (as documented) at patient's floor/unit and/or counseling patient:
[2024-08-26] MEDS: MUPIROCIN 22 GM OINT...G. TOPICAL SCH (12:11)
[2024-08-27] MEDS: HYDRALAZINE HCL 20 MG/ML VIAL IVP ONE (00:08)
[2024-08-27] MEDS: HYDRALAZINE HCL 20 MG/ML VIAL ONE (00:41)
[2024-08-27] MEDS: FUROSEMIDE 20 MG TABLET PO PRN (01:17)
[2024-08-27 05:43] LABS: Basophils #(Absolute) Auto 0.1 (0.0-0.1); Basophils%(Percent) Auto 0.5 (0.1-0.85); Eosinophils#(Absolute)Auto 0.1 (0.0-0.2); Eosinophils%(Percent) Auto 0.9 % (0.4-2.8); Granulocytes % - Auto 74.5 % (47.8-71.3); Granulocytes#(Absolute)- Auto 8.6 (2.3-6.0); Hematocrit 37.6 % (35.9-46.7); Mean Corpuscular Volume 97.4 fl (81.0-93.7); Monocytes #(Absolute)- Auto 1.2 (1.1-3.1); Monocytes %(Percent)- Auto 10.4 % (3.6-9.8); Platelet Count 295 K/uL (152-353); White Blood Count 11.5 K/uL (4.3-9.3)
[2024-08-27 06:11] LABS: Total Cells Counted 100
[2024-08-27 06:12] LABS: RBC Morphology Normal (Normal)
[2024-08-27] MEDS: POTASSIUM CHLORIDE 20 MEQ TAB.ER.PRT PO ONE ×2 (09:24→10:42)
[2024-08-27] MEDS: FUROSEMIDE 20 MG TABLET PO ONE (09:25)
--- NOTE | 2024-08-27 12:32 | Progress Note ---
Progress Note: Subjective Subjective Interval history: Patient lying in the bed upon rounds this morning. Nurse reports patient had a fall at shift change yesterday. Patient was evaluated with negative x-rays. She has skin tears to left upper arm and swelling to left elbow. Patient reports pain to her left elbow and there is swelling but she is able to move the extremity without difficulty. Chest x-ray showed excess fluid to which fluids have been stopped and patient received a PRN 20 mg of Lasix. Lungs sound better today than yesterday. Exam Constitutional: abnormal general appearance (frail appearing), abnormal body habitus (thin) and alert Vital Signs - 24 hr 08/26/24 13:00 08/26/24 16:03 08/26/24 17:00 Temperature 97.6 F 97.6 F Pulse Rate [Left B rachial] 60 60 Respiratory Rate 20 20 Blood Pressure Blood Pressure [Ri ght Arm] 160/90 150/90 Pulse Oximetry 97 97 98 Oxygen Delivery Me thod Nasal Cannula Nasal Cannula Nasal Cannula Oxygen Flow Rate 2 2 Fraction of Inspir ed Oxygen 28 08/26/24 21:00 08/27/24 00:00 08/27/24 00:08 Temperature 96 F L 97.6 F Pulse Rate [Left B rachial] 60 60 Respiratory Rate 16 16 Blood Pressure 200/99 Blood Pressure [Ri ght Arm] 197/87 176/83 Pulse Oximetry 98 98 Oxygen Delivery Me thod Nasal Cannula Nasal Cannula Oxygen Flow Rate 2 2 Fraction of Inspir ed Oxygen 08/27/24 00:41 08/27/24 00:46 08/27/24 01:17 Temperature Pulse Rate [Left B rachial] Respiratory Rate Blood Pressure 200/99 176/83 176/83 Blood Pressure [Ri ght Arm] Pulse Oximetry Oxygen Delivery Me thod Oxygen Flow Rate Fraction of Inspir ed Oxygen 08/27/24 04:00 08/27/24 07:23 08/27/24 11:00 Temperature 97.6 F 97.6 F 97.9 F Pulse Rate [Left B rachial] 60 60 60 Respiratory Rate 16 19 19 Blood Pressure Blood Pressure [Ri ght Arm] 186/85 140/90 160/90 Pulse Oximetry 98 99 98 Oxygen Delivery Me thod Nasal Cannula Nasal Cannula Nasal Cannula Oxygen Flow Rate 2 2 2 Fraction of Inspir ed Oxygen HENMT: normocephalic, head/scalp atraumatic, hearing grossly abnormal, external ears normal, EACs normal, external nose normal, oral mucous membranes normal and oropharynx normal Eyes: PERRL, EOMs intact bilaterally and conjunctivae normal Chest: inspection of chest normal Respiratory: breath sounds equal bilaterally, normal respiratory effort, auscultation abnormal and wheezing noted Cardiovascular: normal heart rate noted, regular rhythm noted, no gallop, no rub and no murmur Gastrointestinal: abdomen normal to inspection, abdomen soft to palpation, nontender to palpation, nontender to percussion, nondistended and normoactive bowel sounds Genitourinary: no CVA tenderness Extremities: normal to inspection, normal to palpation, tenderness noted and full ROM Psychiatry: mental status grossly normal and cooperative Skin: skin color normal, lesion(s) noted, ecchymosis noted and wound(s) noted new skin tears to left upper extremity, bruising noted to BUE and around left eye and cheek that is not new Progress Note: Objective Labs Labs: CBC WBC 11.5 K/uL (4.3-9.3) H 08/27/24 05:15 RBC 3.9 M/uL (4.00-5.50) L 08/27/24 05:15 Hgb 12.2 gm/dL (12.5-15.8) L 08/27/24 05:15 Hct 37.6 % (35.9-46.7) 08/27/24 05:15 MCV 97.4 fl (81.0-93.7) H 08/27/24 05:15 MCH 31.5 pg (27.6-32.2) 08/27/24 05:15 MCHC 32.4 g/dl (33.1-35.3) L 08/27/24 05:15 RDW 16.9 % (11.4-14.2) H 08/27/24 05:15 Plt Count 295 K/uL (152-353) 08/27/24 05:15 MPV 8.0 fl (6.9-10.8) 08/27/24 05:15 Gran % 74.5 % (47.8-71.3) H 08/27/24 05:15 Lymph % (Auto) 13.7 % (20.0-43.0) L 08/27/24 05:15 Garza % (Auto) 10.4 % (3.6-9.8) H 08/27/24 05:15 Eos % (Auto) 0.9 % (0.4-2.8) 08/27/24 05:15 Baso % (Auto) 0.5 (0.1-0.85) 08/27/24 05:15 Lymph # (Auto) 1.6 (1.1-3.1) 08/27/24 05:15 Garza # (Auto) 1.2 (1.1-3.1) 08/27/24 05:15 Eos # (Auto) 0.1 (0.0-0.2) 08/27/24 05:15 Baso # (Auto) 0.1 (0.0-0.1) 08/27/24 05:15 Absolute Gran (auto) 8.6 (2.3-6.0) H 08/27/24 05:15 BMP Sodium 138 mmol/L (136-145) 08/27/24 05:15 Potassium 3.0 mmol/L (3.6-5.2) L 08/27/24 05:15 Chloride 107.0 mmol/L (98-107) 08/27/24 05:15 Carbon Dioxide 19 mmol/L (21-32) L 08/27/24 05:15 Anion Gap 12.0 mEq/L (4-14) 08/27/24 05:15 BUN 16 mg/dL (7-18) 08/27/24 05:15 Creatinine 0.7 mg/dL (0.6-1.3) 08/27/24 05:15 Estimated GFR 85.8 (>59.9) 08/27/24 05:15 Glucose 112 mg/dL (70-110) H 08/27/24 05:15 Calcium 8.4 mg/dL (8.5-10.1) L 08/27/24 05:15 Phosphorus 2.5 mg/dL (2.5-4.9) 08/25/24 04:40 Magnesium 1.7 mg/dL (1.8-2.4) L 08/25/24 04:40 Total Bilirubin 1.15 mg/dL (0.0-1.0) H 08/27/24 05:15 AST 34 U/L (15-37) 08/27/24 05:15 ALT 29 U/L (30-65) L 08/27/24 05:15 Alkaline Phosphatase 99 U/L (50-136) 08/27/24 05:15 Total Protein 6.6 g/dL (6.4-8.2) 08/27/24 05:15 Albumin 2.5 g/dL (3.4-5.0) L 08/27/24 05:15 Liver Function Total Bilirubin 1.15 mg/dL (0.0-1.0) H 08/27/24 05:15 AST 34 U/L (15-37) 08/27/24 05:15 ALT 29 U/L (30-65) L 08/27/24 05:15 Alkaline Phosphatase 99 U/L (50-136) 08/27/24 05:15 Total Protein 6.6 g/dL (6.4-8.2) 08/27/24 05:15 Albumin 2.5 g/dL (3.4-5.0) L 08/27/24 05:15 Urine Urine Color Dark yellow (STRAW/YELL.) 08/22/24 10:20 Urine Appearance Hazy (CLEAR) 08/22/24 10:20 Ur Specific Pierpont 1.015 (1.001-1.035) 08/22/24 10:20 Urine Protein Negative (NEGATIVE) 08/22/24 10:20 Urine Glucose (UA) Normal (NORMAL) 08/22/24 10:20 Urine Ketones Negative (NEGATIVE) 08/22/24 10:20 Urine Occult Blood Negative (NEG - TRACE) 08/22/24 10:20 Urine Nitrite Negative (NEGATIVE) 08/22/24 10:20 Urine Bilirubin Negative (NEGATIVE) 08/22/24 10:20 Urine Urobilinogen Normal (NORMAL) 08/22/24 10:20 Ur Leukocyte Esterase Negative (NEGATIVE) 08/22/24 10:20 Progress Note: A&P Assessment and Plan (1) Pneumonia: Qualifiers: Laterality: left (2) Dementia: Qualifiers: Dementia type: unspecified type Dementia severity: unspecified severity Dementia behavioral or psychological symptom: with anxiety Qualified Code(s): F03.94 - Unspecified dementia, unspecified severity, with anxiety (3) General weakness: (4) Debility: (5) Rib fracture: Qualifiers: Encounter type: initial encounter Rib fracture type: single rib Fracture type: closed Laterality: left Qualified Code(s): S22.32XA - Fracture of one rib, left side, initial encounter for closed fracture (6) Frequent falls: (7) Tremors of nervous system: (8) COPD (chronic obstructive pulmonary disease): Qualifiers: COPD type: COPD with acute exacerbation Qualified Code(s): J44.1 - Chronic obstructive pulmonary disease with (acute) exacerbation (9) CVA (cerebral vascular accident): Qualifiers: CVA mechanism: unspecified Qualified Code(s): I63.9 - Cerebral infarction, unspecified (10) Pacemaker: (11) Leg cramping: Plan Pain control Stop IV fluids Bactroban BID to left nostril Lasix 20 mg PO NOW Replace Potassium CBC, CMP, BNP in AM up and out of bed encourage intake Call when getting up Follow I&Os Fall Risk Details Hanson Fall Scale Risk Level: Moderate Fall Risk Current Medications: Current Medications Atorvastatin Calcium (Atorvastatin Calcium 10 Mg Tablet) 20 mg PO DAILY [facility] Last Admin: 08/27/24 09:25 Dose: 20 mg Bisacodyl (Bisacodyl 10 Mg Supp.Rect) 10 mg DC DAILY PRN PRN Reason: Constipation Furosemide (Furosemide 20 Mg Tablet) 20 mg PO ONCE PRN PRN Reason: wt gain, dysnea, swelling Last Admin: 08/27/24 01:17 Dose: 20 mg Acetaminophen (Acetaminophen 1000 Mg/100 Ml) 1,000 mg in 100 mls @ 400 mls/hr IV Q6H PRN PRN Reason: Pain Last Admin: 08/22/24 01:19 Dose: 400 mls/hr Piperacillin Sod/Tazobactam (Sod 3.375 gm/ Sodium Chloride) 100 mls @ 200 mls/hr IV Q6H [facility] Last Infusion: 08/27/24 05:48 Dose: Infused Vancomycin/PEG/NADA/Lysine/Water (Vancomycin/Water 750 Mg) 750 mg in 150 mls @ 150 mls/hr IV Q24H NICOLE Stop: 08/30/24 15:59 Last Infusion: 08/26/24 16:18 Dose: Infused Vancomycin HCl 750 mg/ Sodium (Chloride) 150 mls @ 150 mls/hr IV ONCE NICOLE Isosorbide Mononitrate (Isosorbide Mononitrate 30 Mg Tab.Er.24h) 60 mg PO DAILY [facility] Last Admin: 08/27/24 09:25 Dose: 60 mg Ketorolac Tromethamine (Ketorolac 30 Mg/Ml Inj Vial) 30 mg IVP Q8H PRN PRN Reason: MILD PAIN SCALE 1-4 Stop: 08/27/24 14:53 Last Admin: 08/27/24 03:15 Dose: 30 mg Levalbuterol HCl (Levalbuterol Hcl 1.25 Mg/3 Ml Vial.Neb) 1.25 mg INH Q6H PRN PRN Reason: shortness of breath or wheezing Metoprolol Succinate (Metoprolol Succinate 25 Mg Tab.Er.24h) 50 mg PO BEDTIME [facility] Last Admin: 08/26/24 21:30 Dose: 50 mg Morphine Sulfate (Morphine Sulfate 2 Mg/Ml Cartridge) 1 mg IV Q2H PRN PRN Reason: Moderate Pain SCALE 5-7 Last Admin: 08/27/24 05:03 Dose: 1 mg Mupirocin (Mupirocin 22 Gm Oint...G.) 1 gm TOPICAL BID [facility] Last Admin: 08/27/24 09:26 Dose: 1 gm Neomycin/Polymyxin/Bacitracin (Neomycin/Bacitracin/Polymyxinb 1 Each Oint.Pack) 1 each TOPICAL DAILY PRN PRN Reason: Skin Irritation Last Admin: 08/25/24 09:30 Dose: 1 each Non-Formulary Medication (Methenamine Hippurate) 1 gm PO BID [facility] Last Admin: 08/27/24 09:25 Dose: 1 gm Non-Formulary Medication (Vitamins A,C,[id number] [Preservision Areds]) 1 tab PO DAILY [facility] Last Admin: 08/27/24 09:26 Dose: 1 tab Rivaroxaban (Rivaroxaban 10 Mg Tablet) 15 mg PO DAILY [facility] Last Admin: 08/27/24 09:24 Dose: 15 mg Venlafaxine HCl (Venlafaxine Hcl 150 Mg Cap.Er) 150 mg PO DAILY [facility] Last Admin: 08/27/24 09:24 Dose: 150 mg Time Spent With Patient Time: Total time spent is greater than 50% in coordination of care (as documented) at patient's floor/unit and/or counseling patient:
[2024-08-28 05:07] LABS: Basophils%(Percent) Auto 0.5 (0.1-0.85); Eosinophils#(Absolute)Auto 0.1 (0.0-0.2); Eosinophils%(Percent) Auto 1.3 % (0.4-2.8); Granulocytes % - Auto 65.5 % (47.8-71.3); Granulocytes#(Absolute)- Auto 6.4 (2.3-6.0); Hematocrit 36.7 % (35.9-46.7); Mean Corpuscular Volume 96.3 fl (81.0-93.7); Monocytes #(Absolute)- Auto 1.1 (1.1-3.1); Monocytes %(Percent)- Auto 11.4 % (3.6-9.8); Platelet Count 314 K/uL (152-353); White Blood Count 9.8 K/uL (4.3-9.3)
[2024-08-28 05:37] LABS: Potassium 3.1 mmol/L (3.6-5.2)
[2024-08-28 08:24] VITALS: RESP 18
[2024-08-28] MEDS: ALBUMIN HUMAN 25% 100 ML IV ONE (09:39)
[2024-08-28] MEDS: BUMETANIDE 1 MG/4 ML VIAL IVP ONE (12:04)
[2024-08-28 12:09] VITALS: BP 183/82; PULSE 60; TEMP 98
--- NOTE | 2024-08-28 12:24 | Discharge Summary ---
DS: Providers Provider Date of admission: 08/21/24 16:06 Primary care physician: Hailee Barreto DO Admitting clinician: Alejandra Stratton Attending physician on admission: Hailee Barreto Consults: 08/21/24 16:45 Consult to Respiratory Therapy Routine Comment: Consulting Provider: Physician Instructions: Reason for consultation: incentive spirometer to bedside 08/22/24 09:11 Consult to Physical Therapy Routine Comment: Consulting Provider: Reason for consultation: fall and fractured ribs Physician Instructions: evaluate and treat and treatment plan 08/22/24 09:16 Consult to Occupational Therapy Routine Comment: Consulting Provider: Reason for consultation: falls and fractured ribs Physician Instructions: evaluate and treat and treatment plan 08/22/24 11:03 Consult to Case Management Routine Comment: Consulting Provider: Physician Instructions: Reason for consultation: terminal make up operator care and rehabilitation 08/24/24 09:45 Consult to Physical Therapy Routine Comment: Consulting Provider: Reason for consultation: chest physiotherapy Physician Instructions: evaluate and treat Attending physician on discharge: Hailee Barreto Discharging clinician: Hailee Barreto Anticipated date of discharge: 08/28/24 DS: Diagnosis Discharge Diagnosis (1) Pneumonia: Qualifiers: Pneumonia type: due to unspecified organism Laterality: left Lung location: lower lobe of lung Qualified Code(s): J18.9 - Pneumonia, unspecified organism (2) Rib fracture: Qualifiers: Encounter type: initial encounter Rib fracture type: single rib Fracture type: closed Laterality: left Qualified Code(s): S22.32XA - Fracture of one rib, left side, initial encounter for closed fracture (3) General weakness: (4) COPD (chronic obstructive pulmonary disease): Qualifiers: COPD type: COPD with acute exacerbation Qualified Code(s): J44.1 - Chronic obstructive pulmonary disease with (acute) exacerbation (5) Debility: (6) Frequent falls: (7) Dementia: Qualifiers: Dementia type: unspecified type Dementia severity: unspecified severity Dementia behavioral or psychological symptom: with anxiety Qualified Code(s): F03.94 - Unspecified dementia, unspecified severity, with anxiety (8) Tremors of nervous system: (9) CVA (cerebral vascular accident): Qualifiers: CVA mechanism: unspecified Qualified Code(s): I63.9 - Cerebral infarction, unspecified (10) Pacemaker: (11) Leg cramping: Plan Discharge patient to in-patient short term rehabilitation facility at [facility]. DS: Summary Hospital Course Hospital Course: This is a 84 year old female patient that presents to the ER with c/o falling 3 days ago in the bathroom and has been c/o left lateral rib pain, LLQ abdominal pain, bruising to left periorbital area since fall. Patient denies any LOC, neck pain, back pain, hip pain, chest pain, SOB, numbness, tingling, weakness, LOC, dizziness or N/V. Admitted to med/surg for observation and treatment. Day one of hospital stay, patient had a restless night per nursing staff and daughter at bedside. Pain was not able to sufficiently be controlled through the night. On-call provider was contacted and Hydromorphone Hcl 2 mg PO ONCE was given to help ease the patient off. In the a.m patient and daughter were educated on the benefits of terminal make up operator care at a custodial facility for rehabilitation purposes and regain pulmonary strength through pulmonary rehab. Patient and family are in agreement with terminal make up operator plan at this time for rehabilitation. Day two of hospital stay, patient chief complaint today is shortness of breath. She was observed to be more alert and oriented, asking questions about her plan of care, sitting up a little higher today. Breathing was more labored today than previous day. WC went up to 16.9, nurse is to assist in feeding and offer ensures if less than 50% of meal has been eat. Patient is in the process of approval for in-patient short-term rehab at the [facility]. Day three of hospital stay, patient WC increased from 16.9 to 19.1 in 24 hrs. Chest X-Ray from 08/23/24 reflect "Left lung base pneumonia with small effusion." New antibiotics will be introduced today per pneumonia protocol. Electrolytes to be replaced and Physical therapy has been asked to start chest percussion (avoiding rib fracture). Nurse reports patient is not eating well, ensure is being encouraged as well as ambulating. Patient has been accepted to the [facility] and will discharge to them for in-patient short term rehabilitation tomorrow, pending medically ready. Day four of hospital stay, patient is noted to be hard of hearing. Provider requested patient to demonstrate using her IS; she was not using it correctly. Education was provided utilizing IS and respiratory therapy was consulted to continue education. Patient educated to splint right side when breathing in. Chief complaint of pain of a 7 out of 10, with 10 being the highest level of pain. WBC improved to 16 from 19 prior day. Day five of hospital stay, chief complaint of a nose bleed. Nurse reports patient has a tissue on bedside table. Upon examination she has some bleeding from left nostril. Provider added Bactroban BID to plan of care. Patient continue to not eat well, alternative options were provided to her and she accepted. She ate half a bowl of cereal. Nursing staff to encourage PO fluids and drinking Ensure for nourishment. Continued encouragement to use IS and demonstrating splinting side with pillow while coughing. Day six of hospital stay, nurse reports patient had a fall at shift change yesterday. Patient was evaluated with negative x-rays. She has skin tears to left upper arm and swelling to left elbow. Patient reports pain to her left elbow and there is swelling but she is able to move the extremity without difficulty. Chest x-ray showed excess fluid to which fluids have been stopped and patient received a PRN 20 mg of Lasix. Lungs sound better today than yesterday. Day seven of hospital stay, patient color and breathing have continued to improve. She was sitting up in carlo-chair at the time of exam this morning drinking her Ensure. Provider encouraged deep breaths with patient. Patient is ready to discharge to [facility] for in-patient short term to terminal make up operator rehabilitation. Patient will benefit from continued education and help with ambulating successfully to decrease frequent falls; as well as, working on lung strength and deep breathing to get patient back to baseline post rib fracture and pneumonia with Pulmonary Rehabilitation. Status at Discharge Functional status at discharge: uses cane/walker (with assistance) Overall status at discharge: patient is progressing back to baseline Time Spent with Patient Time attestation: Total time spent providing and/or coordinating discharge services: Time spent: greater than 30 minutes Exam Exam: Patient sitting in carlo-chair drinking Ensure upon encounter for exam. Constitutional: abnormal general appearance (frail appearing), distress noted (mild) and (respiratory), abnormal body habitus (thin), limitations noted (physical limitations) and alert Vital Signs - 24 hr 08/27/24 11:00 08/27/24 15:00 08/27/24 19:00 Temperature 97.9 F 98.3 F 97.4 F L Pulse Rate [Left B rachial] 60 62 60 Respiratory Rate 19 19 20 Blood Pressure [Ri ght Arm] 160/90 170/80 172/88 Pulse Oximetry 98 97 98 Oxygen Delivery Me thod Nasal Cannula Room Air Nasal Cannula Oxygen Flow Rate 2 2 08/28/24 00:00 08/28/24 04:00 08/28/24 08:00 Temperature 97.6 F 97.5 F L 97.9 F Pulse Rate [Left B rachial] 60 60 58 L Respiratory Rate 20 20 18 Blood Pressure [Ri t Arm] 182/96 164/96 180/79 Pulse Oximetry 98 96 97 Oxygen Delivery Me thod Nasal Cannula Nasal Cannula Nasal Cannula Oxygen Flow Rate 2 2 2 08/28/24 10:10 Temperature Pulse Rate [Left B rachial] Respiratory Rate Blood Pressure [Ri t Arm] Pulse Oximetry 97 Oxygen Delivery Me thod Nasal Cannula Oxygen Flow Rate 2 HENMT: normocephalic, head/scalp atraumatic, hearing grossly abnormal, external ears normal, EACs normal, TMs normal bilaterally, nasal mucous membranes abnormal (epistaxis), external nose normal, oral mucous membranes normal and oropharynx normal Eyes: PERRL, EOMs intact bilaterally, conjunctivae normal, no scleral icterus, no papilledema and periorbital findings abnormal (Lt periorbital bruising - improving) Neck/C-Spine: visual inspection normal, trachea midline, cervical spine nontender, cervical full ROM noted, supple, no meningeal signs and thyroid normal Lymph: no lymphadenopathy noted Chest: inspection of chest normal and palpation of chest abnormal Lt rib fx of #11; rib displacement of #12 Respiratory: breath sounds equal bilaterally, normal respiratory effort, auscultation abnormal (diminished breath sound) (Lt Lung Base), wheezing noted (scattered wheezes) (throughout), no rales, use of accessory muscles noted and chest percussion normal congestion Cardiovascular: normal heart rate noted, regular rhythm noted, no gallop, no rub, no murmur, no JVD, peripheral pulses 2+ throughout and no additional abnormal heart sounds Gastrointestinal: abdomen normal to inspection, abdomen soft to palpation, nontender to palpation, nontender to percussion, nondistended, normoactive bowel sounds, no hepatosplenomegaly, no masses, no pulsatile mass, no ascites and no hernia Genitourinary: no CVA tenderness Back/Pelvis: spine normal to inspection, no thoracic spine tenderness, no lumb ar spine tenderness, thoracic spine ROM normal, lumbar spine ROM normal, no paraspinal muscle tenderness noted and straight leg raise negative bilaterally Extremities: normal to inspection, normal to palpation, tenderness noted (RUE), full ROM, joint enlargement noted (Rt Elbow) and no deformity Neurology: lens and frames prescription clerk II-XII intact, no movement abnormality noted, no focal motor deficit noted, no sensory deficits noted, speech normal, coordination normal, no pronator drift noted, no fasciculations noted and GCS normal Psychiatry: mental status grossly normal, oriented x3, thought process normal, cooperative, affect normal, psychomotor activity normal and memory normal Skin: skin color normal, rash noted, lesion(s) noted, ecchymosis noted and wound(s) noted new skin tears to left upper extremity, bruising noted to BUE and around left eye and cheek that is not new DS: Data Data Completed and Pending Labs on day of discharge: Labs from last 24 hours 08/28/24 05:00 WBC 9.8 H RBC 3.8 L Hgb 12.3 L Hct 36.7 MCV 96.3 H MCH 32.3 H MCHC 33.5 RDW 16.7 H Plt Count 314 MPV 8.1 Gran % 65.5 Lymph % (Auto) 21.3 [place] % (Auto) 11.4 H Eos % (Auto) 1.3 Baso % (Auto) 0.5 Lymph # (Auto) 2.1 [place] # (Auto) 1.1 Eos # (Auto) 0.1 Baso # (Auto) 0.0 Absolute Gran (auto) 6.4 H Sodium 138 Potassium 3.1 L Chloride 106.0 Carbon Dioxide 24 Anion Gap 8.0 BUN 11 Creatinine 0.7 Estimated GFR 85.8 Glucose 104 Calcium 8.6 Phosphorus 2.4 L Magnesium 1.8 Total Bilirubin 0.99 AST 33 ALT 32 Alkaline Phosphatase 93 B-Natriuretic Peptide 983.0 H Total Protein 6.6 Albumin [address] Cervical Spine: Radiologist's impression: CT CERVICAL SPINE WO CON Date of Service: 08/21/24 HISTORY: fallfall; COMPARISON: None. TECHNIQUE: Multiple axial images of the cervical spine without contrast using standard departmental protocol. Sagittal and coronal reformatted images were performed. Dose reduction techniques including Automated Exposure Control (AEC) and adjustment of mA and kV were utilized. FINDINGS: No cervical spine fracture or subluxation. Mild multilevel degenerative changes in the cervical spine. No prevertebral soft tissue swelling. Mild emphysematous change. Visualized thyroid gland unremarkable. IMPRESSION: No acute cervical spine findings. CT scan - chest: Radiologist's impression: CT CHEST/ABD/W Date of Service: 08/21/24 HISTORY: FALL; COMPARISON: None. TECHNIQUE: Contiguous axial CT images of the chest, abdomen, and pelvis following intravenous contrast. Images reviewed in the axial imaging plane with reformatted sagittal and coronal images.The above CT scan was done with automated exposure control and the mA and kV was adjusted to obtain quality images according to patient size. FINDINGS: The lungs are expanded. Prominent interstitial markings in the lower lobes of both lungs. Acute traumatic nondisplaced fracture left 10th posterolateral rib and acute traumatic displaced fracture left 11th posterolateral rib. No pneumothorax. Trace left-sided pleural fluid collection. Mild cardiomegaly. Coronary artery calcifications. Slight enlargement of the main pulmonary outflow trunk 3 cm diameter. Normal enhancement of the thoracic aorta without evidence of aneurysm or dissection. Arterial vascular calcifications aorta and branch vessels. No pericardial effusion. No mediastinal or hilar adenopathy. Liver, pancreas, spleen, adrenal glands appear intact. Scattered arterial vascular calcifications aorta and branch vessels. Kidneys normal size and position. No hydronephrosis. 1.6 cm exophytic mass central density -1 Hounsfield units cortex upper pole left kidney. 0.7 cm mass central density minus 1 Hounsfield units posterior midpole left kidney Details of the GI tract are limited since oral contrast was not used. Generally the small and large bowels are normal caliber. Colonic diverticulosis. Small amount of food and air within the stomach. No ascites. Postsurgical changes of the bowel anterior left mid abdomen. Moderate distention of the urinary bladder. Uterus is absent. [id number] thoracolumbar spondylosis. IMPRESSION: Acute fractures left lower ribs. No pneumothorax. Trace left pleural effusion. Cardiomegaly, coronary artery calcifications. Scattered arterial vascular calcifications aorta and branch vessels. Cholecystectomy. Hysterectomy. Face CT: Radiologist's impression: CT FACIAL BONES WO CON Date of Service: 08/21/24 HISTORY: FALL; COMPARISON: None. TECHNIQUE: Multiple axial images of the maxillofacial region without contrast using standard departmental protocol. Sagittal and coronal reformatted images were performed. Dose reduction techniques including Automated Exposure Control (AEC) and adjustment of mA and kV were utilized. FINDINGS: Cervical spine shows no fracture or dislocation. Paranasal sinuses are clear. 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 No significant facial soft tissue swelling. IMPRESSION: No acute maxillofacial findings. CT scan - head: Radiologist's impression: CT head without contrast Date of Service: 08/21/24 HISTORY: Fall, head trauma TECHNIQUE: Axial noncontrast images with coronal and sagittal reformats. Dose reduction procedures were used with mA/kv adjusted for body size. COMPARISON: 02/22/2024 FINDINGS: The ventricles, cortical sulci, and other CSF spaces are enlarged consistent with generalized atrophy likely age-related. There is decreased attenuation in the periventricular white matter suggestive of small-vessel vascular disease. There is an old lacunar infarct in the left basal ganglia. There are no focal areas of abnormal attenuation to suggest recent or remote CVA, hemorrhage, contusion, mass lesion, or extra-axial fluid collection. Visualized sinuses are clear. The calvarium is intact. 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 The cardiac silhouette is mildly enlarged with left- sided pacemaker in place. Mild emphysema is present. Left lung base infiltrate with pleural effusion is seen. The rest of lungs are clear without focal infiltrate or effusion. The bony thorax is unremarkable. IMPRESSION: Left lung base pneumonia with small effusion. Two-view chest Date of Service: 08/25/24 HISTORY: Follow-up pneumonia COMPARISON: 08/23/2023 FINDINGS: There is a pacemaker present on the left. Heart is enlarged. No congestive heart failure is noted. Aorta is calcified. Chronic interstitial lung changes are present bilaterally [id number]-[id number]-left and stable. No acute infiltrates identified in the right lung or left upper lung field. There is significant improvement in the abnormal density present in the retrocardiac area of the left lower lobe on the prior examination. No definite residual density is present in the left hemidiaphragm is visible. This likely represents resolved atelectasis or infiltrate. Small left pleural effusion may be present the patient's known left 11th rib fracture is not well demonstrated. IMPRESSION: Cardiomegaly without congestive heart failure unchanged Diffuse chronic interstitial lung changes, present and stable Resolution of the previously noted abnormal density which obscured the retrocardiac area of the left hemidiaphragm likely due to resolved atelectasis or infiltrate. Small residual left pleural effusion is likely present Chest X-ray 2 Views. Date of Service: 08/26/24 HISTORY: FALLFALL; . TECHNIQUE: PA and lateral views. COMPARISON: 08/25/2024. TECHNICAL QUALITY: Satisfactory. FINDINGS: Normal-sized heart with pacemaker on the left. Mediastinum and hilar regions show no masses or lymphadenopathy. Normal central vascularity. Pleural effusion left base that is increased since previous study. Small effusion right base. Some atelectasis versus mild consolidation left base and right upper lobe similar to previous study. No acute bony abnormality. IMPRESSION: 1. Increasing pleural fluid both lung bases. 2. Some atelectasis and possible consolidation left base and right upper lobe similar to previous study. XR CHEST 2V Date of Service: 08/28/24 HISTORY: pneumonia and pleural effusionspneumonia and pleural effusions; COMPARISON: August 26, 2024 FINDINGS: The trachea is midline. The cardiac silhouette is mildly enlarged with left- sided pacemaker in place. Mild emphysema is present. Mild interstitial congestion is noted bilaterally with small right and [id number] left effusion. An infiltrate is at left lung base. The rest of lungs are clear without focal infiltrate or effusion. The bony thorax is unremarkable. IMPRESSION: Mild congestive heart failure. Left lung base pneumonia. Elbow X-Ray: Radiologist's impression: XR ELBOW RT 2V Date of Service: 08/27/24 HISTORY: Right arm swelling COMPARISON: None available. TECHNICAL QUALITY: Satisfactory TECHNIQUE: AP and lateral views FINDINGS: No fracture or dislocation. No other bony abnormality. Large lucency anterior to the distal humerus on the lateral view measuring 5.6 cm could represent a lipoma. No other soft tissue abnormality. IMPRESSION: Possible lipoma distal upper arm. CT may be helpful for further evaluation. No other abnormality identified. Discharge Plan Discharge Disposition: [facility] Condition: Improved Discharge Medications: No Action atorvastatin 20 mg tablet 20 mg PO DAILY venlafaxine 150 mg capsule,extended release 24hr 150 mg PO DAILY isosorbide mononitrate 60 mg tablet extended release 24 hr 60 mg PO DAILY Xarelto 20 mg tablet 20 mg PO DAILY Roger Carophere 160-9-4.8 mcg/actuation HFA aerosol inhaler 2 inh INHALATION BID Patient Comments: INHALE 2 PUFFS TWICE A DAY gabapentin 100 mg capsule 100 mg PO Q12H Patient Comments: PER DAUGHTER THEY HAVE WEANED HER OFF THE MEDICATION BUT IT IS STILL PRESCRIBED TO HER metoprolol succinate 50 mg tablet extended release 24 hr 50 mg PO .qhs furosemide 20 mg Tablet 20 mg PO ONCE PRN (Reason: wt gain, dysnea, swelling) Qty: 30 0RF levalbuterol HCl 1.25 mg/3 mL Solution For Nebulization 1.25 mg inhalation Q6H PRN (Reason: shortness of breath or wheezing) Qty: 240 0RF Xarelto 15 mg tablet 15 mg PO DAILY Patient Comments: TAKE 1 TABLET BY MOUTH EVERY DAY WITH FOOD FOR 90 DAYS PreserVision AREDS 2,148 mcg-113 mg-45 mg-17.4mg tablet 1 tab PO DAILY methenamine hippurate 1 gram tablet 1 g PO BID Patient Comments: TAKE 1 TABLET BY MOUTH TWICE A DAY hydroxyzine HCl 10 mg tablet 10 mg PO TID Activity: as per physical therapy Diet: advance to your usual diet Hospital Course: This is a 84 year old female patient that presents to the ER with c/o falling 3 days ago in the bathroom and has been c/o left lateral rib pain, LLQ abdominal pain, bruising to left periorbital area since fall. Patient denies any LOC, neck pain, back pain, hip pain, chest pain, SOB, numbness, tingling, weakness, LOC, dizziness or N/V. Admitted to med/surg for observation and treatment. Day one of hospital stay, patient had a restless night per nursing staff and daughter at bedside. Pain was not able to sufficiently be controlled through the night. On-call provider was contacted and Hydromorphone Hcl 2 mg PO ONCE was given to help ease the patient off. In the a.m patient and daughter were educated on the benefits of custodial care at a custodial facility for rehabilitation purposes and regain pulmonary strength through pulmonary rehab. Patient and family are in agreement with custodial plan at this time for rehabilitation. Day two of hospital stay, patient chief complaint today is shortness of breath. She was observed to be more alert and oriented, asking questions about her plan of care, sitting up a little higher today. Breathing was more labored today than previous day. WC went up to 16.9, nurse is to assist in feeding and offer ensures if less than 50% of meal has been eat. Patient is in the process of approval for in-patient short-term rehab at the [facility]. Day three of hospital stay, patient WC increased from 16.9 to 19.1 in 24 hrs. Chest X-Ray from 08/23/24 reflect "Left lung base pneumonia with small effusion." New antibiotics will be introduced today per pneumonia protocol. Electrolytes to be replaced and Physical therapy has been asked to start chest percussion (avoiding rib fracture). Nurse reports patient is not eating well, ensure is being encouraged as well as ambulating. Patient has been accepted to the [facility] and will discharge to them for in-patient short term rehabilitation tomorrow, pending medically ready. Day four of hospital stay, patient is noted to be hard of hearing. Provider requested patient to demonstrate using her IS; she was not using it correctly. Education was provided utilizing IS and respiratory therapy was consulted to continue education. Patient educated to splint right side when breathing in. Chief complaint of pain of a 7 out of 10, with 10 being the highest level of pain. WBC improved to 16 from 19 prior day. Day five of hospital stay, chief complaint of a nose bleed. Nurse reports patient has a tissue on bedside table. Upon examination she has some bleeding from left nostril. Provider added Bactroban BID to plan of care. Patient continue to not eat well, alternative options were provided to her and she accepted. She ate half a bowl of cereal. Nursing staff to encourage PO fluids and drinking Ensure for nourishment. Continued encouragement to use IS and demonstrating splinting side with pillow while coughing. Day six of hospital stay, nurse reports patient had a fall at shift change yesterday. Patient was evaluated with negative x-rays. She has skin tears to left upper arm and swelling to left elbow. Patient reports pain to her left elbow and there is swelling but she is able to move the extremity without difficulty. Chest x-ray showed excess fluid to which fluids have been stopped and patient received a PRN 20 mg of Lasix. Lungs sound better today than yesterday. Day seven of hospital stay, patient color and breathing have continued to improve. She was sitting up in carlo-chair at the time of exam this morning drinking her Ensure. Provider encouraged deep breaths with patient. Patient is ready to discharge to [facility] for in-patient short term to custodial rehabilitation. Patient will benefit from continued education and help with ambulating successfully to decrease frequent falls; as well as, working on lung strength and deep breathing to get patient back to baseline post rib fracture and pneumonia with Pulmonary Rehabilitation. Interventions: MED/SURG & ICU Observation Charge Sheet Last Done: 08/28/24 06:30 Print Language: [place] Patient Instructions: Heart Failure (GEN), Fall Prevention for Older Adults (GEN), Pneumonia (GEN) Activity Restrictions/Additional Instructions: daily weights notify DOC if 5 pound gain or loss of weight ensure plus after meals and at night if not eating 50% of meals continue pulmonary rehab and PT/OT/Speach eval and treatment as warranted Forms: Portal/Health Info Access Inst Follow-Ups: Hailee Barreto DO [Primary Care Provider] -
[2024-08-29] MEDS ORDERED: RIVAROXABAN 10 MG TABLET PO SCH (09:00)
== END 2024-08-28 13:20 | DRG 205 ==
LOC: MS 12:07 → ED 12:07 → OBSVTOIN 16:06 → MS 16:50
PROVIDERS: ADMIT Nurse Practitioner Family; ATTEND Family Medicine
DX: R25.2 Cramp and spasm; R29.6 Repeated falls; S00.83XA Contusion of other part of head, initial encounter; R53.81 Other malaise; Y92.89 Other specified places as the place of occurrence of the external cause; Y93.89 Activity, other specified; R07.81 Pleurodynia; Z86.73 Personal history of transient ischemic attack (TIA), and cerebral infarction without residual deficits; W19.XXXA Unspecified fall, initial encounter; S22.32XA Fracture of one rib, left side, initial encounter for closed fracture; Z72.0 Tobacco use; F03.94 Unspecified dementia, unspecified severity, with anxiety; R10.32 Left lower quadrant pain; J44.1 Chronic obstructive pulmonary disease with (acute) exacerbation; J18.9 Pneumonia, unspecified organism; R53.1 Weakness; Z95.0 Presence of cardiac pacemaker; R09.02 Hypoxemia; R25.1 Tremor, unspecified

== ENCOUNTER 2024-09-27 13:21 | Observation (INO) ==
[2024-09-27] MEDS ORDERED: NALOXONE HCL 1 MG/ML SYRINGE ONE (13:44)
--- NOTE | 2024-09-27 13:55 | Emergency Department Note ---
HPI - General Adult General Chief complaint: Neuro Symptoms/Deficit Stated complaint: decreased responsiiveness Time Seen by Provider: 09/27/24 13:22 Source: family and caregiver Mode of arrival: walk-in Limitations: altered mental status History of Present Illness HPI narrative: This is a 84 year old female patinet that presents to the Er with c/o per assisted staff that patient started pocketing her food at lunch and her mental state has declined. Patient has a hx of a brain bleed last week. Patient also was seen in the ER this morning for a fall and had a CT head done that showed nothing acute and the old brain bleed was smaller. Patient was A&Ox3 when she left the ER earlier this morning. Patient is non verbal now and intermittently following commands Related Data Home Medications Medication Instructions Recorded Confirmed atorvastatin 20 mg tablet 20 mg PO DAILY 02/22/24 08/22/24 budesonide 160 mcg-glycopyr 9 2 inh inhalation BID 02/22/24 08/22/24 mcg-formot 4.8 mcg/actuation HFA inhaler ([employer]) gabapentin 100 mg capsule 100 mg PO Q12H 02/22/24 08/22/24 isosorbide mononitrate 60 mg 60 mg PO DAILY 02/22/24 08/22/24 tablet,extended release 24 hr metoprolol succinate 50 mg 50 mg PO .qhs 02/22/24 08/22/24 tablet,extended release 24 hr rivaroxaban 20 mg tablet (Xarelto) 20 mg PO DAILY 02/22/24 08/22/24 venlafaxine 150 mg 150 mg PO DAILY 02/22/24 08/22/24 capsule,extended release 24 hr hydroxyzine HCl 10 mg tablet 10 mg PO TID 06/02/24 08/22/24 methenamine hippurate 1 gram tablet 1 g PO BID 06/02/24 08/22/24 rivaroxaban 15 mg tablet (Xarelto) 15 mg PO DAILY 08/22/24 08/22/24 vitamins A,C,S-moyy-ziqhzp 2,148 1 tab PO DAILY 08/23/24 08/23/24 mcg-113 mg-45 mg-17.4 mg tablet (PreserVision AREDS) Previous Rx's Medication Instructions Recorded furosemide 20 mg tablet 20 mg PO ONCE PRN wt gain, dysnea, 02/25/24 swelling #30 tabs levalbuterol HCl 1.25 mg/3 mL 1.25 mg (3 mL) inhalation Q6H PRN 02/25/24 solution for nebulization shortness of breath or wheezing #240 mL Allergies Allergy/AdvReac Type Severity Reaction Status Date / Time codeine Allergy Mild Verified 09/27/24 14:09 Review of Systems Status of ROS unobtainable due to mental status PFSH PFSH Medical History COPD (chronic obstructive pulmonary disease) HTN (hypertension) A-fib CHF (congestive heart failure) CVA (cerebral vascular accident) Pacemaker Surgical History Hx of cholecystectomy Hx of hysterectomy Hx of appendectomy Hx of prior ablation treatment Social History (Updated 06/01/24 @ 20:24 by Monse Main APRN) Smoking status: never smoker Within the past year, how often did you have a drink containing alcohol: never Score interpretation: A score less than 3 is consistent with normal alcohol consumption. Non-prescribed substance use: denies use Problems where you live: no known problems Highest level of school completed/degree received: high school Feel stressed/tense/nervous/anxious/difficulty sleeping: to some extent Life stressors: other Life stressor details: 1 Due to disability, difficulty making decisions: No Exam Constitutional: normal general appearance and no apparent distress Vital Signs - 24 hr 09/27/24 13:25 09/27/24 13:56 09/27/24 14:09 Temperature 97.8 F Pulse Rate 60 61 60 Respiratory Rate 14 15 15 Blood Pressure 131/69 147/73 161/82 Pulse Oximetry 98 98 98 Oxygen Delivery Me thod Room Air Room Air Room Air 09/27/24 14:31 09/27/24 15:00 Temperature Pulse Rate 60 60 Respiratory Rate 15 15 Blood Pressure 126/64 131/67 Pulse Oximetry 98 98 Oxygen Delivery Me thod Room Air Room Air HENMT: normocephalic and head/scalp atraumatic old healing lac above right eyebrow Eyes: PERRL and EOMs intact bilaterally pupils pinpoint bilaterally Neck/C-Spine: visual inspection normal and trachea midline Chest: inspection of chest normal Respiratory: breath sounds equal bilaterally, normal respiratory effort, clear to auscultation bilaterally, no wheezes, no rales, no retractions and no use of accessory muscles Cardiovascular: normal heart rate noted, regular rhythm noted, no gallop, no rub, no murmur, no JVD, no clicks, peripheral pulses 2+ throughout and no bruits noted Gastrointestinal: abdomen normal to inspection, abdomen soft to palpation, nondistended, normoactive bowel sounds, no hepatosplenomegaly, no masses, no pulsatile mass, no ascites and no hernia Back/Pelvis: spine normal to inspection Extremities: normal to inspection, normal to palpation and no deformity Neurology: alert with eyes open intermittently squeezes hand bilaterally on command Psychiatry: alert with eyes open intermittently squeezes hand bilaterally on command Skin: skin color normal Course Course Hospital Course: 1345: spoke to Kat the patients daughter and she stated that patient does not want to be intubated and there is a paper in the chart saying the same 1407: pupils became normal and patient is now following commands after narcan and ramizicon were given 1507: patient is alert, following commands and talking now. VSS. No s/s of acute distress noted. Will admit to the medical floor for further evaluation Reevaluation(s) Reevaluation #1: [id number]: spoke to Dr Perez (neurology) reviewed the case with him and he states that the work up was appropriate in the ER and ok to watch patient overnight for observation Vital Signs Vital signs: Vital Signs Temperature 97.8 F 09/27/24 13:25 Pulse Rate 60 09/27/24 13:25 Respiratory Rate 14 09/27/24 13:25 Blood Pressure 131/69 09/27/24 13:25 Pulse Oximetry 98 09/27/24 13:25 Oxygen Delivery Method Room Air 09/27/24 13:25 Temperature 97.8 F 09/27/24 13:25 Pulse Rate 60 09/27/24 15:00 Respiratory Rate 15 09/27/24 15:00 Blood Pressure 131/67 09/27/24 15:00 Pulse Oximetry 98 09/27/24 15:00 Oxygen Delivery Method Room Air 09/27/24 15:00 Medical Decision Making Differential Diagnosis Differential Diagnosis: viral illness Medical Records Medical records reviewed: Yes I reviewed the patient's medical records Lab Data Lab results reviewed: Yes I reviewed the patient's lab results Labs: Lab Results 09/27/24 09/27/24 Range/Units 14:00 14:27 WBC 11.8 H (4.3-9.3) K/uL RBC 5.0 (4.00-5.50) M/uL Hgb 15.6 (12.5-15.8) gm/dL Hct 47.7 H (35.9-46.7) % MCV 94.9 H (81.0-93.7) fl MCH 31.0 (27.6-32.2) pg MCHC 32.7 L (33.1-35.3) g/dl RDW 16.5 H (11.4-14.2) % Plt Count 243 (152-353) K/uL MPV 9.5 (6.9-10.8) fl Gran % 70.2 (47.8-71.3) % Lymph % (Auto) 19.6 L (20.0-43.0) % [place] % (Auto) 9.3 (3.6-9.8) % Eos % (Auto) 0.8 (0.4-2.8) % Baso % (Auto) 0.2 (0.1-0.85) Lymph # (Auto) 2.3 (1.1-3.1) [place] # (Auto) 1.1 (1.1-3.1) Eos # (Auto) 0.1 (0.0-0.2) Baso # (Auto) 0.0 (0.0-0.1) Absolute Gran (auto) 8.3 H (2.3-6.0) Sodium 140 (136-145) mmol/L Potassium 3.9 (3.6-5.2) mmol/L Chloride 105.0 (98-107) mmol/L Carbon Dioxide 27 (21-32) mmol/L Anion Gap 8.0 (4-14) mEq/L BUN 16 (7-18) mg/dL Creatinine 0.9 (0.6-1.3) mg/dL Estimated GFR 63.4 (>59.9) Glucose 94 (70-110) mg/dL Lactic Acid 1.4 (0.27-1.43) mmol/L Calcium 9.8 (8.5-10.1) mg/dL Total Bilirubin 0.83 (0.0-1.0) mg/dL AST 32 (15-37) U/L ALT 29 L (30-65) U/L Alkaline Phosphatase 128 (50-136) U/L Troponin I High Sens 20.30 (4.0-60.4) ng/L Total Protein 7.5 (6.4-8.2) g/dL Albumin 3.5 (3.4-5.0) g/dL Urine Color Yellow (STRAW/YELL.) Urine Appearance Clear (CLEAR) Ur Specific [place] 1.030 (1.001-1.035) Urine Protein Negative (NEGATIVE) Urine Glucose (UA) Normal (NORMAL) Urine Ketones Negative (NEGATIVE) Urine Occult Blood Negative (NEG - TRACE) Urine Nitrite Negative (NEGATIVE) Urine Bilirubin Negative (NEGATIVE) Urine Urobilinogen Normal (NORMAL) Ur Leukocyte Esterase Negative (NEGATIVE) Fluid pH 5.0 (5 - 9) Urine Opiates Screen Neg. (NEGATIVE) Urine Methadone Screen Neg. (NEGATIVE) Barbiturate Screen Neg. (NEGATIVE) Ur Phencyclidine Scrn Neg. (NEGATIVE) Amphetamines Screen Neg. (NEGATIVE) U Benzodiazepines Scrn Neg. (NEGATIVE) Urine Cocaine Screen Neg. (NEGATIVE) U Marijuana (THC) Screen Neg. (NEGATIVE) Imaging Data CT scan - head: Attestation: I have reviewed the pertinent imaging results. ECG Data Attestation: I have reviewed the pertinent ECG results. Discharge Plan Discharge Patient Disposition: Admitted As Observation Condition: Stable Clinical Impression: AMS (altered mental status) Time of Disposition: 15:16
[2024-09-27] MEDS: NALOXONE HCL 1 MG/ML SYRINGE INJ ONE (13:56)
[2024-09-27 14:14] LABS: Granulocytes % - Auto 70.2 % (47.8-71.3); Hematocrit 47.7 % (35.9-46.7); Mean Corpuscular Volume 94.9 fl (81.0-93.7); Monocytes %(Percent)- Auto 9.3 % (3.6-9.8); Platelet Count 243 K/uL (152-353); White Blood Count 11.8 K/uL (4.3-9.3)
[2024-09-27 14:15] LABS: Basophils%(Percent) Auto 0.2 (0.1-0.85); Eosinophils#(Absolute)Auto 0.1 (0.0-0.2); Eosinophils%(Percent) Auto 0.8 % (0.4-2.8); Granulocytes#(Absolute)- Auto 8.3 (2.3-6.0); Monocytes #(Absolute)- Auto 1.1 (1.1-3.1)
[2024-09-27 14:51] LABS: Amphetamine Screen Urine NEG. (NEGATIVE); Cannabinoid Screen Urine NEG. (NEGATIVE); Cocaine Screen Urine NEG. (NEGATIVE); Methadone Screen Urine NEG. (NEGATIVE); Opiate Screen Urine NEG. (NEGATIVE); Urine Appearance CLEAR (CLEAR); Urine Blood NEGATIVE (NEG - TRACE); Urine Color YELLOW (STRAW/YELL.); Urine Urobilinogen Normal (NORMAL)
[2024-09-27 15:11] LABS: Potassium 3.9 mmol/L (3.6-5.2)
--- NOTE | 2024-09-27 16:35 | History & Physical Report ---
H&P: HPI History of Present Illness Chief complaint: Altered Mental Status(AMS) Narrative: This is a 84 year old female patient that presents to the Er with c/o per halfway staff that patient started pocketing her food at lunch and her mental state has declined. Patient has a hx of a brain bleed last week. Patient also was seen in the ER this morning for a fall and had a CT head done that showed nothing acute and the old brain bleed was smaller. Patient was A&Ox3 when she left the ER earlier this morning. Patient is non verbal now and intermittently following commands. Admitted to med/surg floor for further observation and treatment. Day one of hospital stay, per nursing staff on med/surg floor, patient presented dissociated and lethargic. Patient was able to answer some questions right away and others she stated "I don't know, give me some time to think about it." Patient was observed to have a fissure on sacrum from fall this a.m and a laceration on right eyebrow from previous fall on 09/19/2024 when she also was seen ot have the cerebral bleed. Review of Systems Status of ROS unobtainable due to medical condition and unobtainable due to mental status Constitutional Reports: change in weight (weight loss since fall and bleed), fatigue and malaise Eyes Denies: increased production of tears Ears, nose, mouth, and throat Reports: difficulty swallowing; Denies: throat swelling, swelling of lips/tongue or bad breath Cardiovascular Denies: edema or swelling of feet/ankles Respiratory Denies: cough, wheezing or coughing up blood Gastrointestinal Reports: other (decreased appetite); Denies: vomiting, diarrhea or constipation Genitourinary Reports: urinary incontinence Musculoskeletal Reports: limited range of motion and muscle weakness; Denies: extremity swelling or joint swelling Integumentary/Breast Denies: rash, redness or skin swelling Neurological Reports: weakness in extremities, lack of coordination, confusion, behavioral changes, slurred speech, difficulty communicating thoughts and seizure-like activity (noted today and postictal a possibility) Psychiatric Reports: memory loss Endocrine Denies: excessive urination Hematologic/Lymphatic Reports: easy bleeding; Denies: easy bruising or enlarged lymph nodes Allergic/Immunologic Denies: hives, throat swelling, tongue swelling, facial swelling or wheezing [facility] Medical History (Updated 09/27/24 @ 17:19 by Hailee Barreto DO) Recent cerebral hemorrhage HTN (hypertension) CHF (congestive heart failure) CVA (cerebral vascular accident) COPD (chronic obstructive pulmonary disease) A-fib Pacemaker Surgical History Hx of cholecystectomy Hx of hysterectomy Hx of appendectomy Hx of prior ablation treatment Social History Smoking status: never smoker Within the past year, how often did you have a drink containing alcohol: never Score interpretation: A score less than 3 is consistent with normal alcohol consumption. Non-prescribed substance use: denies use Problems where you live: no known problems Highest level of school completed/degree received: high school Feel stressed/tense/nervous/anxious/difficulty sleeping: to some extent Life stressors: other Life stressor details: 1 Due to disability, difficulty making decisions: No Meds Home Medications and Allergies Home Medications Medication Instructions Recorded Confirmed Type atorvastatin 20 mg tablet 20 mg PO DAILY 02/22/24 08/22/24 History budesonide 160 mcg-glycopyr 9 2 inh inhalation BID 02/22/24 08/22/24 History mcg-formot 4.8 mcg/actuation HFA inhaler (Breztri Aerosphere) gabapentin 100 mg capsule 100 mg PO Q12H 02/22/24 08/22/24 History isosorbide mononitrate 60 mg 60 mg PO DAILY 02/22/24 08/22/24 History tablet,extended release 24 hr metoprolol succinate 50 mg 50 mg PO .qhs 02/22/24 08/22/24 History tablet,extended release 24 hr rivaroxaban 20 mg tablet (Xarelto) 20 mg PO DAILY 02/22/24 08/22/24 History venlafaxine 150 mg 150 mg PO DAILY 02/22/24 08/22/24 History capsule,extended release 24 hr furosemide 20 mg tablet 20 mg PO ONCE PRN wt gain, dysnea, 02/25/24 08/22/24 Rx swelling #30 tabs levalbuterol HCl 1.25 mg/3 mL 1.25 mg (3 mL) inhalation Q6H PRN 02/25/24 08/22/24 Rx solution for nebulization shortness of breath or wheezing #240 mL hydroxyzine HCl 10 mg tablet 10 mg PO TID 06/02/24 08/22/24 History methenamine hippurate 1 gram tablet 1 g PO BID 06/02/24 08/22/24 History rivaroxaban 15 mg tablet (Xarelto) 15 mg PO DAILY 08/22/24 08/22/24 History vitamins A,C,D-tepu-dixqtp 2,148 1 tab PO DAILY 08/23/24 08/23/24 History mcg-113 mg-45 mg-17.4 mg tablet (PreserVision AREDS) Allergies Allergy/AdvReac Type Severity Reaction Status Date / Time codeine Allergy Mild Verified 09/27/24 14:09 Exam Exam: Patient in ingram's position with daughter at bedside. Constitutional: abnormal general appearance (disheveled) and (lethargic), no apparent distress, abnormal body habitus (thin), limitations noted (altered mental status) (intermittant) and (physical limitations) and level of alertness abnormal (obtunded) and (confused) Vital Signs - 24 hr 09/27/24 13:25 09/27/24 13:56 09/27/24 14:09 Temperature 97.8 F Pulse Rate 60 61 60 Respiratory Rate 14 15 15 Blood Pressure 131/69 147/73 161/82 Pulse Oximetry 98 98 98 Oxygen Delivery Me thod Room Air Room Air Room Air 09/27/24 14:31 09/27/24 15:00 Temperature Pulse Rate 60 60 Respiratory Rate 15 15 Blood Pressure 126/64 131/67 Pulse Oximetry 98 98 [facility] HENMT: normocephalic, head/scalp atraumatic, TMs normal bilaterally, nasal mucous membranes normal, external nose abnormal and oral mucous membranes abnormal old healing lac above right eyebrow, dentures in place Eyes: PERRL, EOMs intact bilaterally, conjunctivae normal, no scleral icterus, papilledema noted and periorbital findings abnormal pupils pinpoint bilaterally, healing wound right eyebrow with steri strips in place Neck/C-Spine: trachea midline, cervical spine nontender, abnormal cervical ROM noted, supple, no meningeal signs, thyroid normal and no carotid bruits Lymph: no lymphadenopathy noted and no lymphedema noted Chest: inspection of chest normal and palpation of chest normal Respiratory: breath sounds equal bilaterally, normal respiratory effort, clear to auscultation bilaterally, no wheezes, no rales, no retractions and no use of accessory muscles Cardiovascular: heart rate abnormal (bradycardic), regular rhythm noted, no gallop, no rub, no murmur, no JVD, no clicks, peripheral pulses 2+ throughout and no bruits noted Gastrointestinal: abdomen normal to inspection, abdomen soft to palpation, nondistended, normoactive bowel sounds, no hepatosplenomegaly, no masses, no pulsatile mass, no ascites and no hernia Genitourinary: no CVA tenderness and bladder normal to palpation Back/Pelvis: no thoracic spine tenderness, no lumbar spine tenderness, thoracic spine ROM abnormal and lumbar spine ROM abnormal Extremities: normal to inspection, normal to palpation, no tenderness, full ROM, no joint enlargement and no deformity Neurology: alert with eyes open intermittently squeezes hand bilaterally on command Psychiatry: mental status abnormal (obtunded), orientation abnormal, thought process abnormality noted, cooperative, psychomotor abnormality noted (slow) and (disorganized) and memory abnormal alert with eyes open intermittently squeezes hand bilaterally on command Skin: skin color normal Assessment and Plan Assessment and Plan (1) AMS (altered mental status): Qualifiers: Altered mental status type: somnolence Qualified Code(s): R40.0 - Somnolence Code(s): R41.82 - Altered mental status, unspecified (2) Frequent falls: Code(s): R29.6 - Repeated falls (3) General weakness: Code(s): R53.1 - Weakness (4) COPD (chronic obstructive pulmonary disease): Qualifiers: COPD type: COPD with acute exacerbation Qualified Code(s): J44.1 - Chronic obstructive pulmonary disease with (acute) exacerbation Code(s): J44.9 - Chronic obstructive pulmonary disease, unspecified (5) HTN (hypertension): Qualifiers: Hypertension type: primary hypertension Qualified Code(s): I10 - Essential (primary) hypertension Code(s): I10 - Essential (primary) hypertension (6) A-fib: Qualifiers: Atrial fibrillation type: paroxysmal Qualified Code(s): I48.0 - Paroxysmal atrial fibrillation Code(s): I48.91 - Unspecified atrial fibrillation (7) CHF (congestive heart failure): Qualifiers: Heart failure chronicity: acute on chronic Heart failure type: combined systolic and diastolic Qualified Code(s): I50.43 - Acute on chronic combined systolic (congestive) and diastolic (congestive) heart failure Code(s): I50.9 - Heart failure, unspecified (8) CVA (cerebral vascular accident): Qualifiers: CVA mechanism: unspecified Qualified Code(s): I63.9 - Cerebral in farction, unspecified Code(s): I63.9 - Cerebral infarction, unspecified (9) Pacemaker: Code(s): Z95.0 - Presence of cardiac pacemaker (10) Debility: Code(s): R53.81 - Other malaise (11) Recent cerebral hemorrhage: Code(s): Z86.73 - Personal history of transient ischemic attack (TIA), and cerebral infarction without residual deficits (12) Dementia: Qualifiers: Dementia type: unspecified type Dementia severity: unspecified severity Dementia behavioral or psychological symptom: with anxiety Qualified Code(s): F03.94 - Unspecified dementia, unspecified severity, with anxiety Code(s): F03.90 - Unspecified dementia, unspecified severity, without behavioral disturbance, psychotic disturbance, mood disturbance, and anxiety (13) Tremors of nervous system: Code(s): R25.1 - Tremor, unspecified Plan Neuro Checks, monitor for seizure activity and neuro changes [facility] Neuro Consultation Monitor and treat NS at 83 ml per hour bed alarm protonix 40 mg daily core filer and continuous pulse oximetry lovenox contraindicated so will do compression socks chest and rib xray to see healing of pneumonia and rib fracture CBC, CMP, tsh, BNPeptide and mag and phos in the am MRI of head with and without contrast in the am keep sats greater than 92% Results Labs Labs: CBC WBC 11.8 K/uL (4.3-9.3) H 09/27/24 14:00 RBC 5.0 M/uL (4.00-5.50) 09/27/24 14:00 Hgb 15.6 gm/dL (12.5-15.8) 09/27/24 14:00 Hct 47.7 % (35.9-46.7) H 09/27/24 14:00 MCV 94.9 fl (81.0-93.7) H 09/27/24 14:00 MCH 31.0 pg (27.6-32.2) 09/27/24 14:00 MCHC 32.7 g/dl (33.1-35.3) L 09/27/24 14:00 RDW 16.5 % (11.4-14.2) H 09/27/24 14:00 Plt Count 243 K/uL (152-353) 09/27/24 14:00 MPV 9.5 fl (6.9-10.8) 09/27/24 14:00 Gran % 70.2 % (47.8-71.3) 09/27/24 14:00 Lymph % (Auto) 19.6 % (20.0-43.0) L 09/27/24 14:00 [place]y % (Auto) 9.3 % (3.6-9.8) 09/27/24 14:00 Eos % (Auto) 0.8 % (0.4-2.8) 09/27/24 14:00 Baso % (Auto) 0.2 (0.1-0.85) 09/27/24 14:00 Lymph # (Auto) 2.3 (1.1-3.1) 09/27/24 14:00 Sibley # (Auto) 1.1 (1.1-3.1) 09/27/24 14:00 Eos # (Auto) 0.1 (0.0-0.2) 09/27/24 14:00 Baso # (Auto) 0.0 (0.0-0.1) 09/27/24 14:00 Absolute Gran (auto) 8.3 (2.3-6.0) H 09/27/24 14:00 BMP Sodium 140 mmol/L (136-145) 09/27/24 14:00 Potassium 3.9 mmol/L (3.6-5.2) 09/27/24 14:00 Chloride 105.0 mmol/L (98-107) 09/27/24 14:00 Carbon Dioxide 27 mmol/L (21-32) 09/27/24 14:00 Anion Gap 8.0 mEq/L (4-14) 09/27/24 14:00 BUN 16 mg/dL (7-18) 09/27/24 14:00 Creatinine 0.9 mg/dL (0.6-1.3) 09/27/24 14:00 Estimated GFR 63.4 (>59.9) 09/27/24 14:00 Glucose 94 mg/dL (70-110) 09/27/24 14:00 Calcium 9.8 mg/dL (8.5-10.1) 09/27/24 14:00 Total Bilirubin 0.83 mg/dL (0.0-1.0) 09/27/24 14:00 AST 32 U/L (15-37) 09/27/24 14:00 ALT 29 U/L (30-65) L 09/27/24 14:00 Alkaline Phosphatase 128 U/L (50-136) 09/27/24 14:00 Total Protein 7.5 g/dL (6.4-8.2) 09/27/24 14:00 Albumin 3.5 g/dL (3.4-5.0) 09/27/24 14:00 Cardiac Enzymes Troponin I High Sens 20.30 ng/L (4.0-60.4) 09/27/24 14:00 Liver Function Total Bilirubin 0.83 mg/dL (0.0-1.0) 09/27/24 14:00 AST 32 U/L (15-37) 09/27/24 14:00 ALT 29 U/L (30-65) L 09/27/24 14:00 Alkaline Phosphatase 128 U/L (50-136) 09/27/24 14:00 Total Protein 7.5 g/dL (6.4-8.2) 09/27/24 14:00 Albumin 3.5 g/dL (3.4-5.0) 09/27/24 14:00 Urine Urine Color Yellow (STRAW/YELL.) 09/27/24 14:27 Urine Appearance Clear (CLEAR) 09/27/24 14:27 Ur Specific [place] 1.030 (1.001-1.035) 09/27/24 14:27 Urine Protein Negative (NEGATIVE) 09/27/24 14: Urine Glucose (UA) Normal (NORMAL) 09/27/24 14:27 Urine Ketones Negative (NEGATIVE) 09/27/24 14: Urine Occult Blood Negative (NEG - TRACE) 09/27/24 14: Urine Nitrite Negative (NEGATIVE) 09/27/24 14: Urine Bilirubin Negative (NEGATIVE) 09/27/24 14:27 Urine Urobilinogen Normal (NORMAL) 09/27/24 14:27 Ur Leukocyte Esterase Negative (NEGATIVE) 09/27/24 14:27 Pulse Oximetry Attestation: I have reviewed the pertinent pulse oximetry results. Imaging Imaging ordered: CT scan - head and other (Sacrum and Coccyx X-Ray; Cervical Spine CT) Attestation: I have reviewed the pertinent imaging results. Radiologist's impression: AP and lateral sacrum and coccyx three views total Date of Service: 09/27/24 HISTORY: Fall, coccyx pain COMPARISON: None FINDINGS: Bones are osteopenic. SI joints appear intact. Sacrum and coccyx appear intact. If the patient continues to be symptomatic CT could be obtained in order to detect a fracture that is radiographically occult due to osteopenia. IMPRESSION: Osteopenia No definite sacral or coccygeal fracture identified CT CERVICAL SPINE WITHOUT CONTRAST Date of Service: 09/27/24 HISTORY: fallfall; pt fell today. has hx of falls. hit her head, c/o neck pain and coccyx pain. hx: CHF, HTN, COPD . COMPARISON: None. TECHNIQUE: Axial CT images were obtained through the cervical spine without contrast. Coronal and sagittal reformations were post processed. All CT scans at this facility use dose modulation, iterative reconstruction, and/or weight based dosing when appropriate to reduce radiation dose to as low as reasonably achievable. FINDINGS: C-SPINE: Moderate multilevel degenerative disc disease is noted. Curvature vertebral body heights and alignment are maintained. SURROUNDING SOFT TISSUES: Mild emphysema in the lung apices LUNG APICES: Within normal limits. IMPRESSION: No evidence of acute findings on cervical spine exam. CT HEAD WITHOUT CONTRAST Date of Service: 09/27/24 HISTORY: fall, hx of recent brain bleedfall, hx of recent brain bleed; pt fell today. has hx of falls. hit her head, c/o neck pain and coccyx pain. hx: CHF, HTN, COPD. HAD INTRACRANIAL HEMORRHAGE ON 09-19-2024 COMPARISON: September 19, 2024. TECHNIQUE: Axial CT images were obtained through the brain without contrast. All CT scans at this facility use dose modulation, iterative reconstruction, and/or weight based dosing when appropriate to reduce radiation dose to as low as reasonably achievable. FINDINGS: BRAIN: Prior study demonstrated a focus of hemorrhage intracranially in the left cerebral peduncle. This is becoming less dense on current examination. No evidence of new hemorrhage at this time. Background diffuse cerebral atrophy and microangiopathic changes. 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 Orbits are grossly unremarkable. IMPRESSION: No evidence of new hemorrhage. Previously demonstrated focus of hemorrhage in the left cerebral peduncle of the level of the midbrain shows decreasing density. CT HEAD/BRAIN WO CON Date of Service: 09/27/24 HISTORY: AMSAMS; COMPARISON: September 27 at 6:20 a.m. in September 19, 2024 TECHNIQUE: Noncontrast CT of the head is performed in the axial plane with multi planar reconstruction FINDINGS: Since the recent exam of comparison, there has been no significant interval change. Redemonstrated is a small focus of hyperattenuation within the left cerebral peduncle/midbrain corresponding to recently described small intraparenchymal hemorrhage which appears less dense in the interim. There is no interval expansion or progressive edema. 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 An old small-vessel ischemic infarction involves aspects of the left external capsule, burger radiata, and adjacent putamen. There is no evidence of an acute stage, large artery territorial infarction. There is no global mass effect, midline shift, or evidence of cerebral edema. Ventricular size is concordant to the degree of cortical volume loss. Sinuses and mastoid air cells are predominantly clear. The cerebellar tonsils remain normal in position. No suprasellar asymmetry is identified. IMPRESSION: Stable CT of the head with no significant interval changes. Previously demonstrated subcentimeter focus of hemorrhage within the left cerebral peduncle/midbrain shows decreased density since the exam of September 19. Advanced chronic degenerative white matter changes of the supratentorial brain reflective of chronic small-vessel ischemia with associated cortical volume loss.
[2024-09-27] MEDS ORDERED: MAGNESIUM, ALUMINUM HYDROXIDE 30 ML ORAL.SUSP PO PRN (17:00)
[2024-09-27] MEDS ORDERED: ACETAMINOPHEN 500 MG TABLET PO PRN (17:00)
[2024-09-27] MEDS ORDERED: bisacodyL 10 MG SUPP.RECT PR PRN (17:00)
[2024-09-27] MEDS: PANTOPRAZOLE SODIUM 40 MG TABLET.DR PO SCH (21:25)
[2024-09-28 05:24] LABS: Basophils #(Absolute) Auto 0.1 (0.0-0.1); Basophils%(Percent) Auto 0.5 (0.1-0.85); Eosinophils#(Absolute)Auto 0.1 (0.0-0.2); Eosinophils%(Percent) Auto 1.1 % (0.4-2.8); Granulocytes % - Auto 77.5 % (47.8-71.3); Granulocytes#(Absolute)- Auto 9.3 (2.3-6.0); Hematocrit 43.3 % (35.9-46.7); Mean Corpuscular Volume 96.8 fl (81.0-93.7); Monocytes %(Percent)- Auto 8.7 % (3.6-9.8); Platelet Count 225 K/uL (152-353)
[2024-09-28 05:42] LABS: Potassium 3.5 mmol/L (3.6-5.2)
[2024-09-28 09:20] VITALS: RESP 19
[2024-09-28] MEDS: MAGNESIUM OXIDE 400 MG TABLET PO ONE (10:53)
[2024-09-28] MEDS: POTASSIUM CHLORIDE 20 MEQ TAB.ER.PRT PO ONE (10:53)
[2024-09-28 12:58] VITALS: BP 182/65; PULSE 60; TEMP 98.4
--- NOTE | 2024-09-28 13:27 | Discharge Summary ---
DS: Providers Provider Date of admission: 09/27/24 15:21 Primary care physician: Hailee Barreto DO Admitting clinician: Alejandra Stratton Attending physician on admission: Hailee Barreto Attending physician on discharge: Hailee Barreto Discharging clinician: Hailee Barreto Anticipated date of discharge: 09/28/24 DS: Diagnosis Discharge Diagnosis (1) AMS (altered mental status): Qualifiers: Altered mental status type: somnolence Qualified Code(s): R40.0 - Somnolence (2) Frequent falls: (3) Recent cerebral hemorrhage: (4) Concussion: Qualifiers: Encounter type: subsequent encounter Loss of consciousness presence/duration: without LOC Qualified Code(s): S06.0X0D - Concussion without loss of consciousness, subsequent encounter (5) General weakness: (6) COPD (chronic obstructive pulmonary disease): Qualifiers: COPD type: COPD with acute exacerbation Qualified Code(s): J44.1 - Chronic obstructive pulmonary disease with (acute) exacerbation (7) HTN (hypertension): Qualifiers: Hypertension type: primary hypertension Qualified Code(s): I10 - Essential (primary) hypertension (8) A-fib: Qualifiers: Atrial fibrillation type: paroxysmal Qualified Code(s): I48.0 - Paroxysmal atrial fibrillation (9) CHF (congestive heart failure): Qualifiers: Heart failure type: combined systolic and diastolic Heart failure chronicity: acute on chronic Qualified Code(s): I50.43 - Acute on chronic combined systolic (congestive) and diastolic (congestive) heart failure (10) CVA (cerebral vascular accident): Qualifiers: CVA mechanism: unspecified Qualified Code(s): I63.9 - Cerebral infarction, unspecified (11) Pacemaker: (12) Debility: (13) Dementia: Qualifiers: Dementia type: unspecified type Dementia severity: unspecified severity Dementia behavioral or psychological symptom: with anxiety Qualified Code(s): F03.94 - Unspecified dementia, unspecified severity, with anxiety (14) Tremors of nervous system: DS: Summary Hospital Course Hospital Course: 1345: spoke to Kat the patients daughter and she stated that patient does not want to be intubated and there is a paper in the chart saying the same 1407: pupils became normal and patient is now following commands after narcan and ramizicon were given 1507: patient is alert, following commands and talking now. VSS. No s/s of acute distress noted. Will admit to the medical floor for further evaluation Patient did well throughout hospital stay mentation continued to return to his baseline although still confused and will try to get out of bed and can be easily redirected by staff in the hospital. Electrolytes remained okay white count remains low but elevated with your normal. Chest x-ray this a.m. showed that there is resolution of the pneumonia from her previous visit and chest x-ray. Status at Discharge Functional status at discharge: uses cane/walker (Patient is assistance with all ambulation) Overall status at discharge: patient is progressing back to baseline Time Spent with Patient Time attestation: Total time spent providing and/or coordinating discharge services: Time spent: greater than 30 minutes Exam Constitutional: normal general appearance, no apparent distress, abnormal body habitus, limitations noted and level of alertness abnormal Vital Signs - 24 hr 09/27/24 13:25 09/27/24 13:56 09/27/24 14:09 Temperature 97.8 F Pulse Rate 60 61 60 Pulse Rate [Right] Respiratory Rate 14 15 15 Blood Pressure 131/69 147/73 161/82 Blood Pressure [Ri ght Arm] Pulse Oximetry 98 98 [facility] 09/27/24 14:31 09/27/24 15:00 09/27/24 15:30 Temperature Pulse Rate 60 60 60 Pulse Rate [Right] Respiratory Rate 15 15 13 Blood Pressure 126/64 131/67 137/68 Blood Pressure [Ri ght Arm] Pulse Oximetry 98 98 96 [facility] Room Air 09/27/24 15:51 09/27/24 15:51 09/27/24 16:00 Temperature 97.5 F L Pulse Rate 60 Pulse Rate [Right] 60 Respiratory Rate 16 15 Blood Pressure 136/66 Blood Pressure [Ri ght Arm] 138/64 Pulse Oximetry 93 L [facility] Room Air 09/27/24 16:30 09/27/24 16:30 09/27/24 21:03 Temperature 97.8 F Pulse Rate 60 60 Pulse Rate [Right] 50 L Respiratory Rate 13 13 17 Blood Pressure 127/62 127/62 Blood Pressure [Ri ght Arm] 115/51 Pulse Oximetry 98 98 93 L Oxygen Delivery Me thod Room Air Room Air 09/27/24 23:49 09/28/24 04:00 09/28/24 08:00 Temperature 97.9 F 98.7 F 98.3 F Pulse Rate Pulse Rate [Right] 16 L 60 62 Respiratory Rate 60 H 15 19 Blood Pressure Blood Pressure [Ri t Arm] 120/56 159/49 148/56 Pulse Oximetry 96 97 98 Oxygen Delivery Me thod Room Air Room Air Room Air 09/28/24 12:00 Temperature 98.4 F Pulse Rate Pulse Rate [Right] 60 Respiratory Rate 19 Blood Pressure Blood Pressure [Ri t Arm] 182/65 Pulse Oximetry 97 Oxygen Delivery Me thod Room Air HENMT: normocephalic, head/scalp atraumatic, hearing grossly abnormal, external nose abnormal, oral mucous membranes abnormal and dentition abnormal old healing lac above right eyebrow Eyes: PERRL, EOMs intact bilaterally, conjunctivae normal, no scleral icterus, papilledema noted and periorbital findings normal pupils pinpoint bilaterally Neck/C-Spine: visual inspection normal and trachea midline Lymph: no lymphadenopathy noted and no lymphedema noted Chest: inspection of chest normal and palpation of chest normal Respiratory: breath sounds equal bilaterally, normal respiratory effort, clear to auscultation bilaterally, no wheezes, no rales, no retractions and no use of accessory muscles Cardiovascular: normal heart rate noted, regular rhythm noted, no gallop, no rub, no murmur, no JVD, no clicks, peripheral pulses 2+ throughout and no bruits noted Gastrointestinal: abdomen normal to inspection, abdomen soft to palpation, nondistended, normoactive bowel sounds, no hepatosplenomegaly, no masses, no pulsatile mass, no ascites and no hernia Back/Pelvis: spine normal to inspection Extremities: normal to inspection, normal to palpation and no deformity Neurology: alert with eyes open intermittently squeezes hand bilaterally on command Psychiatry: alert with eyes open intermittently squeezes hand bilaterally on command Skin: skin color normal DS: Data Data Completed and Pending Labs on day of discharge: Labs from last 24 hours 09/28/24 09/27/24 09/27/24 05:15 14:27 14:00 WBC 12.0 H 11.8 H RBC 4.5 5.0 Hgb 14.2 15.6 Hct 43.3 47.7 H MCV 96.8 H 94.9 H MCH 31.8 31.0 MCHC 32.8 L 32.7 L RDW 16.4 H 16.5 H Plt Count 225 243 MPV 9.2 9.5 Gran % 77.5 H 70.2 Lymph % (Auto) 12.2 L 19.6 L [place] % (Auto) 8.7 9.3 Eos % (Auto) 1.1 0.8 Baso % (Auto) 0.5 0.2 Lymph # (Auto) 1.5 2.3 [place] # (Auto) 1.0 L 1.1 Eos # (Auto) 0.1 0.1 Baso # (Auto) 0.1 0.0 Absolute Gran (auto) 9.3 H 8.3 H Sodium 140 140 Potassium 3.5 L 3.9 Chloride 107.0 105.0 Carbon Dioxide 27 27 Anion Gap 6.0 8.0 BUN 17 16 Creatinine 0.8 0.9 Estimated GFR 73.1 63.4 Glucose 92 94 Lactic Acid 1.4 Calcium 9.0 9.8 Phosphorus 3.5 Magnesium 1.7 L Total Bilirubin 1.30 H 0.83 AST 30 32 ALT 27 L 29 L Alkaline Phosphatase 124 128 Troponin I High Sens 20.30 B-Natriuretic Peptide 79.3 Total Protein 7.2 7.5 Albumin 3.3 L 3.5 Urine Color Yellow Urine Appearance Clear Ur Specific [place] 1.030 Urine Protein Negative Urine Glucose (UA) Normal Urine Ketones Negative Urine Occult Blood Negative Urine Nitrite Negative Urine Bilirubin Negative Urine Urobilinogen Normal Ur Leukocyte Esterase Negative Fluid pH 5.0 Urine Opiates Screen Neg. Urine Methadone Screen Neg. Barbiturate Screen Neg. Ur Phencyclidine Scrn Neg. Amphetamines Screen Neg. U Benzodiazepines Scrn Neg. Urine Cocaine Screen Neg. U Marijuana (THC) Screen Neg. Discharge Plan Discharge Disposition: [facility] Condition: Improved Anticipated Discharge Date/Time: 09/28/24 13:15 Discharge Medications: Continued atorvastatin 20 mg tablet 20 mg PO DAILY venlafaxine 150 mg capsule,extended release 24hr 150 mg PO DAILY isosorbide mononitrate 60 mg tablet extended release 24 hr 60 mg PO DAILY Xarelto 20 mg tablet 20 mg PO DAILY Breztri Aerosphere 160-9-4.8 mcg/actuation HFA aerosol inhaler 2 inh INHALATION BID Patient Comments: INHALE 2 PUFFS TWICE A DAY gabapentin 100 mg capsule 100 mg PO Q12H Patient Comments: PER DAUGHTER THEY HAVE WEANED HER OFF THE MEDICATION BUT IT IS STILL PRESCRIBED TO HER metoprolol succinate 50 mg tablet extended release 24 hr 50 mg PO .qhs furosemide 20 mg Tablet 20 mg PO ONCE PRN (Reason: wt gain, dysnea, swelling) Qty: 30 0RF levalbuterol HCl 1.25 mg/3 mL Solution For Nebulization 1.25 mg inhalation Q6H PRN (Reason: shortness of breath or wheezing) Qty: 240 0RF Xarelto 15 mg tablet 15 mg PO DAILY Patient Comments: TAKE 1 TABLET BY MOUTH EVERY DAY WITH FOOD FOR 90 DAYS PreserVision AREDS 2,148 mcg-113 mg-45 mg-17.4mg tablet 1 tab PO DAILY methenamine hippurate 1 gram tablet 1 g PO BID Patient Comments: TAKE 1 TABLET BY MOUTH TWICE A DAY hydroxyzine HCl 10 mg tablet 10 mg PO TID Activity: as per physical therapy Diet Detail: per nutrition and speech consults Hospital Course: 1345: spoke to Kat the patients daughter and she stated that patient does not want to be intubated and there is a paper in the chart saying the same 1407: pupils became normal and patient is now following commands after narcan and ramizicon were given 1507: patient is alert, following commands and talking now. VSS. No s/s of acute distress noted. Will admit to the medical floor for further evaluation Patient did well throughout hospital stay mentation continued to return to his baseline although still confused and will try to get out of bed and can be easily redirected by staff in the hospital. Electrolytes remained okay white count remains low but elevated with your normal. Chest x-ray this a.m. showed that there is resolution of the pneumonia from her previous visit and chest x-ray. Interventions: MED/SURG & ICU Observation Charge Sheet Last Done: 09/28/24 00:34 Plan of Treatment: Patient had a candidate for MRI secondary to her pacemaker Patient seems to be back to her new baseline since her hemorrhagic CVA Patient currently not a candidate for oral anticoagulation secondary to frequent falls in the senior living and at home, With recent hemorrhagic CVA Patient to resume PT, OT, speech rehab and nutritional consult in the senior living please Lower patient's bed secondary to high risk for falls and wandering Print Language: Kittitian Forms: Portal/Health Info Access Inst Follow-Ups: Hailee Barreto DO [Primary Care Provider] -
== END 2024-09-28 14:00 ==
LOC: ED 13:21 → MS 13:21
PROVIDERS: ADMIT Family Medicine; ATTEND Family Medicine

== ENCOUNTER → 2024-11-16 14:41 | Observation (INO) ==
[2024-11-15 17:47] LABS: Basophils%(Percent) Auto 0.4 (0.1-0.85); Eosinophils#(Absolute)Auto 0.1 (0.0-0.2); Eosinophils%(Percent) Auto 1.3 % (0.4-2.8); Granulocytes % - Auto 63.4 % (47.8-71.3); Granulocytes#(Absolute)- Auto 6.7 (2.3-6.0); Hematocrit 44.5 % (35.9-46.7); Mean Corpuscular Volume 99.8 fl (81.0-93.7); Monocytes #(Absolute)- Auto 1.1 (1.1-3.1); Monocytes %(Percent)- Auto 10.1 % (3.6-9.8); Platelet Count 275 K/uL (152-353); White Blood Count 10.5 K/uL (4.3-9.3)
[2024-11-15 18:28] LABS: Potassium 4.2 mmol/L (3.6-5.2)
[2024-11-15] MEDS: 0.9 % SODIUM CHLORIDE 500 ML IV ONE (20:53)
[2024-11-15] MEDS: FAMOTIDINE 20 MG TABLET PO SCH (20:53)
[2024-11-15] MEDS: CEFTRIAXONE SODIUM 1 GM in 0.9 % SODIUM CHLORIDE MB+ 50 ML IV SCH (20:53)
[2024-11-15] MEDS: 0.9 % SODIUM CHLORIDE 1000 ML 1,000 ML IV SCH (20:54)
[2024-11-15] MEDS: ACETAMINOPHEN 500 MG TABLET PO PRN (21:08)
[2024-11-15 21:57] LABS: Urine Appearance CLOUDY (CLEAR); Urine Color YELLOW (STRAW/YELL.)
[2024-11-15 21:58] LABS: PH BODY FLUID EXCP BLOOD 6.5 (5 - 9); Urine Blood NEGATIVE (NEG - TRACE); Urine Urobilinogen 4 mg/dL (NORMAL)
[2024-11-15 22:24] LABS: Urine Amorphous Sediment Negative (Negative); Urine Yeast Negative (Negative)
[2024-11-16 03:37] VITALS: RESP 17
[2024-11-16 06:46] LABS: Potassium 3.6 mmol/L (3.6-5.2)
[2024-11-16 06:52] LABS: Basophils #(Absolute) Auto 0.1 (0.0-0.1); Basophils%(Percent) Auto 0.7 (0.1-0.85); Eosinophils#(Absolute)Auto 0.1 (0.0-0.2); Eosinophils%(Percent) Auto 1.4 % (0.4-2.8); Granulocytes % - Auto 54.1 % (47.8-71.3); Granulocytes#(Absolute)- Auto 4.1 (2.3-6.0); Hematocrit 45.6 % (35.9-46.7); Monocytes #(Absolute)- Auto 0.8 (1.1-3.1); Monocytes %(Percent)- Auto 10.5 % (3.6-9.8); Platelet Count 294 K/uL (152-353); White Blood Count 7.6 K/uL (4.3-9.3)
[2024-11-16 07:59] VITALS: PULSE 60
[2024-11-16] MEDS: PANTOPRAZOLE SODIUM 40 MG TABLET.DR PO SCH (09:06)
[2024-11-16] MEDS: ENOXAPARIN SODIUM 40 MG/0.4 ML SYRINGE SUBQ SCH (09:06)
--- NOTE | 2024-11-16 10:24 | Short Stay Summary ---
H&P: HPI History of Present Illness Chief complaint: uti, weakness, fall, contusion chest wall Narrative: Patient is an 84-year-old direct admitted to med/surg by BOB Ballard for a UTI, Weakness, Fall, and Contusion of Chest Wall. Family of patient reports she has been falling "a lot". Urine in the office showed nitrates and WBC's and patient could barely get around she was so weak although confused she remained pleasant. Review of Systems Status of ROS 10 or more systems reviewed and unremark able except as noted in history and below and other (patient weak and confused so most of ROS and histroy from the daughter) Constitutional Reports: fatigue and malaise; Denies: fever, chills, change in weight or change in sleep pattern Eyes Denies: change in vision, blurry vision, blind spots, light sensitivity or eye discomfort Ears, nose, mouth, and throat Denies: throat pain, neck pain, throat swelling, difficulty swallowing or hoarseness Cardiovascular Reports: chest pain (Rt. Chest Wall Pain); Denies: palpitations, edema or swelling of feet/ankles Respiratory Denies: shortness of breath, cough, wheezing or stridor Gastrointestinal Reports: constipation; Denies: abdominal pain, nausea, vomiting, coffee grounds in vomit, heartburn, diarrhea or difficulty swallowing Genitourinary Reports: urinary frequency, urinary urgency and urinary incontinence; Denies: painful urination Musculoskeletal Reports: limited range of motion; Denies: back pain, neck pain, extremity pain, extremity swelling or joint pain Integumentary/Breast Denies: rash, itching, redness, skin pain or skin tenderness Neurological Reports: weakness in extremities, confusion and difficulty communicating thoughts; Denies: headache, numbness in extremities, lack of coordination or seizure-like activity Psychiatric Reports: memory loss and difficulty concentrating; Denies: anxiety, mood swings, panic attacks, change in sleep pattern, hopelessness, loss of interest, irritability, paranoia, tactile hallucinations, suicidal ideation or homicidal ideation Endocrine Denies: excessive urination, excessive thirst, fatigue or cold intolerance Hematologic/Lymphatic Denies: easy bruising, easy bleeding or enlarged lymph nodes Allergic/Immunologic Denies: hives, throat swelling, tongue swelling or facial swelling PFSH PFS Medical History Vapes nicotine containing substance Recent cerebral hemorrhage HTN (hypertension) CHF (congestive heart failure) CVA (cerebral vascular accident) COPD (chronic obstructive pulmonary disease) A-fib Pacemaker Surgical History Hx of cholecystectomy Hx of hysterectomy Hx of appendectomy Hx of prior ablation treatment Social History Smoking status: never smoker Within the past year, how often did you have a drink containing alcohol: never Score interpretation: A score less than 3 is consistent with normal alcohol consumption. Non-prescribed substance use: denies use Problems where you live: no known problems Highest level of school completed/degree received: decline to answer Feel stressed/tense/nervous/anxious/difficulty sleeping: to some extent Life stressors: other Life stressor details: 1 Due to disability, difficulty making decisions: No Meds Home Medications and Allergies Home Medications Medication Instructions Recorded Confirmed Type atorvastatin 20 mg tablet 20 mg PO DAILY 02/22/24 11/16/24 History budesonide 160 mcg-glycopyr 9 2 inh inhalation BID 02/22/24 11/16/24 History mcg-formot 4.8 mcg/actuation HFA inhaler (Breztri Aerosphere) gabapentin 100 mg capsule 100 mg PO Q8H 02/22/24 11/16/24 History isosorbide mononitrate 60 mg 60 mg PO DAILY 02/22/24 11/16/24 History tablet,extended release 24 hr metoprolol succinate 50 mg 50 mg PO .qhs 02/22/24 08/22/24 History tablet,extended release 24 hr rivaroxaban 20 mg tablet (Xarelto) 20 mg PO DAILY 02/22/24 08/22/24 History venlafaxine 150 mg 150 mg PO DAILY 02/22/24 11/16/24 History capsule,extended release 24 hr furosemide 20 mg tablet 20 mg PO ONCE PRN wt gain, dysnea, 02/25/24 11/16/24 Rx swelling #30 tabs levalbuterol HCl 1.25 mg/3 mL 1.25 mg (3 mL) inhalation Q6H PRN 02/25/24 08/22/24 Rx solution for nebulization shortness of breath or wheezing #240 mL hydroxyzine HCl 10 mg tablet 10 mg PO TID 10/18/24 04/03/25 History methenamine hippurate 1 gram tablet 1 g PO BID 06/02/24 08/22/24 History rivaroxaban 15 mg tablet (Xarelto) 15 mg PO DAILY 08/22/24 08/22/24 History vitamins A,C,B-nlpn-aytkiz 2,148 1 tab PO DAILY 08/23/24 11/16/24 History mcg-113 mg-45 mg-17.4 mg tablet (PreserVision AREDS) amlodipine 5 mg tablet 5 mg PO DAILY 11/16/24 11/16/24 History cephalexin 500 mg tablet 500 mg PO Q8H uti #14 tabs 11/16/24 Rx tramadol 50 mg tablet 50 mg PO .Q8-12H PRN pain 11/16/24 11/16/24 History Allergies Allergy/AdvReac Type Severity Reaction Status Date / Time codeine Allergy Mild Verified 09/27/24 14:09 Exam Exam: Patient guarding right side of chest wall, complains of pain. Constitutional: abnormal general appearance (disheveled) and (lethargic), distress noted (mild), abnormal body habitus (cachectic) and (thin), limitations noted (altered mental status), (behavioral limitations) (Dementia) and (physical limitations) and alert Vital Signs - 24 hr 11/15/24 17:38 11/15/24 17:44 11/15/24 19:16 Temperature 97.5 F L 98.3 F Pulse Rate [Left] 67 67 70 Respiratory Rate 18 18 16 Blood Pressure [Le ft Arm] 159/63 145/66 Pulse [facility]ximetry 99 99 [facility] 11/15/24 23:29 11/16/24 03:36 11/16/24 07:58 Temperature 97.9 F 97.8 F 98.4 F Pulse Rate [Left] 70 61 60 Respiratory Rate 15 17 17 Blood Pressure [Le ft Arm] 155/63 155/74 172/75 Pulse Oximetry 96 97 97 [facility] Air Room Air HENMT: normocephalic, head/scalp atraumatic, hearing grossly normal bilaterally, oral mucous membranes abnormal and dentition abnormal (dentures in place) Eyes: PERRL, EOMs intact bilaterally, conjunctivae normal, no scleral icterus, papilledema noted and periorbital findings normal Neck/C-Spine: abnormal to visual inspection, trachea midline, cervical spine nontender, abnormal cervical ROM noted, supple, no meningeal signs, thyroid normal and carotid bruits noted Lymph: no lymphadenopathy noted and no lymphedema noted Chest: inspection of chest abnormal (Contusion to Rt. Chest Wall) and palpation of chest abnormal Respiratory: breath sounds equal bilaterally, normal respiratory effort, clear to auscultation bilaterally, no wheezes, no rales and no retractions Cardiovascular: normal heart rate noted, regular rhythm noted, no gallop, no rub, no murmur, no JVD, no clicks, peripheral pulses 2+ throughout and no bruits noted Gastrointestinal: abdomen normal to inspection, abdomen soft to palpation, nontender to palpation, nondistended, normoactive bowel sounds, hepatosplenomegaly noted, no masses, no pulsatile mass, no ascites and no hernia Genitourinary: no CVA tenderness and bladder abnormal to palpation (tender) Back/Pelvis: spine abnormal to inspection, no thoracic spine tenderness, no lumbar spine tenderness, thoracic spine ROM abnormal, lumbar spine ROM abnormal and straight leg raise negative bilaterally Extremities: abnormal to inspection, abnormal to palpation (varicose veins), no tenderness, abnormal ROM noted and no deformity Neurology: 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, no movement abnormality noted, no focal motor deficit noted, sensory deficit noted, gait abnormality noted (unable to access), speech abnormality noted other (slow), coordination abnormality noted, no pronator drift noted, no fasciculations noted and GCS normal Psychiatry: Mental Status Exam documented within this Exam's Psych section mental status grossly normal, orientation abnormal, thought process abnormality noted (Dimentia), cooperative, affect abnormality noted (labile) and psychomotor abnormality noted (slow) Feel stressed/tense/nervous/anxious/difficulty sleeping: not at all Skin: skin color abnormal, no rash, no lesions, ecchymosis noted, no wounds, no lacerations, skin turgor normal, no jaundice, no petechiae, no mottling, nails abnormality noted and no alopecia Contusion to Rt. Chest Wall Assessment and Plan Assessment and Plan (1) UTI (urinary tract infection): Qualifiers: Hematuria presence: without hematuria Urinary tract infection type: site unspecified Qualified Code(s): N39.0 - Urinary tract infection, site not specified Code(s): N39.0 - Urinary tract infection, site not specified (2) Frequent falls: Code(s): R29.6 - Repeated falls (3) Contusion, chest wall: Qualifiers: Encounter type: initial encounter Laterality: right Qualified Code(s): S20.211A - Contusion of right front wall of thorax, initial encounter Code(s): S20.219A - Contusion of unspecified front wall of thorax, initial encounter (4) Hyperchloremia: Code(s): E87.8 - Other disorders of electrolyte and fluid balance, not elsewhere classified (5) HTN (hypertension): Qualifiers: Hypertension type: primary hypertension Qualified Code(s): I10 - Essential (primary) hypertension Code(s): I10 - Essential (primary) hypertension (6) General weakness: Code(s): R53.1 - Weakness (7) COPD (chronic obstructive pulmonary disease): Qualifiers: COPD type: COPD with acute exacerbation Qualified Code(s): J44.1 - Chronic obstructive pulmonary disease with (acute) exacerbation Code(s): J44.9 - Chronic obstructive pulmonary disease, unspecified (8) Dementia: Assessment and Plan: patient with neuro checks every 4 hours and prn strict I/O's daily weights lovenox 40 SQ every day protonix 40 mg every day rocephin 1 gram IV every 12 hours cautious hydration IV 0.9% 100 ml per hour treat BP with home medications discharge home with daughter as patient and daughter anxious to get her home to avoid further confusion Qualifiers: Dementia behavioral or psychological symptom: with anxiety Dementia severity: unspecified severity Dementia type: unspecified type Qualified Code(s): F03.94 - Unspecified dementia, unspecified severity, with anxiety Code(s): F03.90 - Unspecified dementia, unspecified severity, without behavioral disturbance, psychotic disturbance, mood disturbance, and anxiety Plan Sodium Chloride 1,000 mls @ 100 mls/hr IV CONT Ceftriaxone Sodium 1 gm in Sodium Chloride 50 MLS @ 100 mls/hr IV Q12H Pantoprazole Sodium 40 mg PO DAILY Enoxaparin Sodium 40 mg SUBQ DAILY Famotidine 20 mg PO BID Acetaminophen 1,000 mg PO Q6H PRN Ondansetron Hcl 4 mg INJ Q6H PRN Polyethylene Glycol 17 gm PO DAILY PRN Discharge home for self care. Results Labs Labs: CBC 11/15/24 11/16/24 Range/Units 17:40 06:20 WBC 10.5 H 7.6 (4.3-9.3) K/uL RBC 4.5 4.7 (4.00-5.50) M/uL Hgb 14.3 15.3 (12.5-15.8) gm/dL Hct 44.5 45.6 (35.9-46.7) % Plt Count 275 294 (152-353) K/uL Gran % 63.4 54.1 (47.8-71.3) % Lymph % (Auto) 24.8 33.3 (20.0-43.0) % [place] % (Auto) 10.1 H 10.5 H (3.6-9.8) % Eos % (Auto) 1.3 1.4 (0.4-2.8) % Baso % (Auto) 0.4 0.7 (0.1-0.85) Lymph # (Auto) 2.6 2.5 (1.1-3.1) [place] # (Auto) 1.1 0.8 L (1.1-3.1) Eos # (Auto) 0.1 0.1 (0.0-0.2) Baso # (Auto) 0.0 0.1 (0.0-0.1) Absolute Gran (auto) 6.7 H 4.1 (2.3-6.0) CMP 11/15/24 11/16/24 17:40 06:20 Sodium 137 142 Potassium 4.2 3.6 Chloride 104.0 108.0 H Carbon Dioxide 27 29 BUN 17 13 Creatinine 0.8 0.7 Glucose 98 90 Calcium 9.6 9.4 Cardiac Enzymes 11/15/24 17:40 Total Creatine Kinase 59 Liver Function 11/15/24 11/16/24 Range/Units 17:40 06:20 Total Bilirubin 0.81 0.78 (0.0-1.0) mg/dL AST 25 22 (15-37) U/L ALT 20 L 21 L (30-65) U/L Alkaline Phosphatase 142 H 148 H (50-136) U/L Albumin 3.5 3.6 (3.4-5.0) g/dL Urine 11/15/24 21:05 Urine Color Yellow Urine Appearance Cloudy Ur Specific [place] 1.010 Urine Protein Negative Urine Glucose (UA) Normal Pulse Oximetry Attestation: I have reviewed the pertinent pulse oximetry results. ECG Attestation: I have reviewed the pertinent ECG results. Prior ECG tracings: available for review Imaging Imaging ordered: Chest x-ray Radiologist's impression: XR CHEST 2V Date of Service: 11/15/24 HISTORY: CHEST PAIN, CONTUSION CHEST WALL; CV/OT COMPARISON: September 28, 2024 FINDINGS: The trachea is midline. The cardiac silhouette is mildly enlarged with left- sided pacemaker in place. Mild emphysema is present. The lungs are clear without focal infiltrate or effusion. The bony thorax is unremarkable. IMPRESSION: No acute cardiopulmonary disease. DS: Providers Provider Date of admission: 11/15/24 16:04 Primary care physician: Hailee Barreto DO Admitting clinician: Melissa Liu Attending physician on admission: Hailee Barreto Attending physician on discharge: Hailee Barreto Discharging clinician: Hailee Barreto Anticipated date of discharge: 11/16/24 DS: Summary Hospital Course Hospital Course: Patient is an 84-year-old direct admitted to med/surg by BOB Ballard for a UTI, Weakness, Fall, and Contusion of Chest Wall. Family of patient reports she has been falling "a lot". Patient was difficult to get an IV on, however, was 24G to right wrist was successful. Chest X-Ray resulted "No acute cardiopulmonary disease." Blood Culture resulted in Gram Negative Rods. WBC went from 10.5 on admission to 7.6 this a.m. Patient is medically ready to go home for self care. Follow up with PCP in 5-7 days of discharge or before if needed. Status at Discharge Overall status at discharge: patient is progressing back to baseline Time Spent with Patient Time attestation: Total time spent providing and/or coordinating discharge services: Discharge Plan Discharge Disposition: Home, Self-Care Condition: Other Discharge Medications: New cephalexin 500 mg tablet 500 mg PO Q8H Qty: 14 0RF Continued atorvastatin 20 mg tablet 20 mg PO DAILY venlafaxine 150 mg capsule,extended release 24hr 150 mg PO DAILY isosorbide mononitrate 60 mg tablet extended release 24 hr 60 mg PO DAILY Xarelto 20 mg tablet 20 mg PO DAILY Breztri Aerosphere 160-9-4.8 mcg/actuation HFA aerosol inhaler 2 inh INHALATION BID Patient Comments: INHALE 2 PUFFS TWICE A DAY gabapentin 100 mg capsule 100 mg PO Q8H Patient Comments: PER DAUGHTER THEY HAVE WEANED HER OFF THE MEDICATION BUT IT IS STILL PRESCRIBED TO HER. last fill was for 3 times a day. metoprolol succinate 50 mg tablet extended release 24 hr 50 mg PO .qhs furosemide 20 mg Tablet 20 mg PO ONCE PRN (Reason: wt gain, dysnea, swelling) Qty: 30 0RF levalbuterol HCl 1.25 mg/3 mL Solution For Nebulization 1.25 mg inhalation Q6H PRN (Reason: shortness of breath or wheezing) Qty: 240 0RF Xarelto 15 mg tablet 15 mg PO DAILY Patient Comments: TAKE 1 TABLET BY MOUTH EVERY DAY WITH FOOD FOR 90 DAYS PreserVision AREDS 2,148 mcg-113 mg-45 mg-17.4mg tablet 1 tab PO DAILY methenamine hippurate 1 gram tablet 1 g PO BID Patient Comments: TAKE 1 TABLET BY MOUTH TWICE A DAY hydroxyzine HCl 10 mg tablet 10 mg PO TID amlodipine 5 mg tablet 5 mg PO DAILY Patient Comments: TAKE 1 TABLET BY MOUTH EVERY DAY tramadol 50 mg tablet 50 mg PO .Q8-12H PRN (Reason: pain) Patient Comments: TAKE 1 TABLET BY MOUTH EVERY 8 TO 12 HOURS NEEDED FOR PAIN Discontinued metoprolol tartrate 50 mg tablet 50 mg PO BID Activity: as per physical therapy Diet: advance to your usual diet Activity Restrictions/Additional Instructions: increase water and electrolyte drinks daily and add ensure advanced 2-3 times per day depending on how well patient eating follow up PCP 5-7 days for falls and UTI Home health PT/OT if fever or concerns follow up with her PCP or ER at any time or call DOC at 0 [phone]. Forms: Portal/Health Info Access Inst
[2024-11-16 12:01] VITALS: TEMP 98.5
[2024-11-16 13:51] VITALS: BP 190/73
[2024-11-16] MEDS: AMLODIPINE BESYLATE 5 MG TABLET PO SCH (13:51)
[2024-11-16] MEDS: ISOSORBIDE MONONITRATE 30 MG TAB.ER.24H PO SCH (13:51)
[~2024-11-16 14:41] MED LIST: ONDANSETRON HCL/PF 4 MG/2 ML VIAL INJ PRN; PANTOPRAZOLE SODIUM 40 MG TABLET.DR PO SCH; polyethylene glycoL 3350 17 GM POWD.PACK PO PRN
== END | disposition home or self-care (01) ==
LOC: MS
PROVIDERS: ADMIT Family Medicine; ATTEND Family Medicine
DX: Z79.51 Long term (current) use of inhaled steroids; Z86.73 Personal history of transient ischemic attack (TIA), and cerebral infarction without residual deficits; R29.6 Repeated falls; R53.1 Weakness; I11.0 Hypertensive heart disease with heart failure; I50.9 Heart failure, unspecified; N39.0 Urinary tract infection, site not specified; E87.8 Other disorders of electrolyte and fluid balance, not elsewhere classified; F03.94 Unspecified dementia, unspecified severity, with anxiety; J44.1 Chronic obstructive pulmonary disease with (acute) exacerbation; W19.XXXA Unspecified fall, initial encounter; S20.211A Contusion of right front wall of thorax, initial encounter; Z88.5 Allergy status to narcotic agent; Z79.01 Long term (current) use of anticoagulants; Z86.79 Personal history of other diseases of the circulatory system; Z79.899 Other long term (current) drug therapy